=== PATIENT | female | born 1975 | race Caucasian/White ===

== ENCOUNTER 2020-03-26 12:56 | Emergency (ER) | payer OTHER, SELFPAY ==
--- NOTE | 2020-03-26 12:58 | XR_ITS ---
EXAMINATION: PORTABLE CHEST 1 VIEW CLINICAL INFORMATION: possible COVID . COMPARISON: 04/01/2019. TECHNIQUE: Portable frontal view of the chest was obtained. FINDINGS: The lungs are well expanded. No focal infiltrate, effusion, edema, or pneumothorax. Cardiac and mediastinal silhouettes are within normal limits for technique. No acute bony abnormality seen. XR/XR chest 1V IMPRESSION: No evidence of acute disease compared to 04/01/2019.
[2020-03-26 13:03] VITALS: BP 136/80; BP 141/73; PULSE 76; PULSE 90; RESP 18; TEMP 37.5; O2SAT 100; O2SAT 99; BMI 43.3
--- NOTE | 2020-03-26 13:15 | ED.GENADULT ---
HPI - General Adult General Chief complaint: General Medical Stated complaint: N/V/D, -TASTE/SMELL, +EXP, ? COVID Time Seen by Provider: 03/26/20 12:58 Source: patient and EMS Mode of arrival: EMS Limitations: no limitations History of Present Illness HPI narrative: 44 y/o female with history of asthma presents via EMS with 1 week of vomiting, diarrhea, loss of sense of taste and smell as well as dry cough for 1 week. She lives with 3 family members who are COVID positive. She denies shortness of breath, wheezing or chest pain. She has been eating and drinking much less due to loss of appetite. Abdominal pain is when she vomits she feels a soreness throughout her entire abdomen. MD complaint: COVID symptoms Onset (ago): week(s) (1) Location: back and abdomen Radiation: non-radiation Severity: severe Severity scale (1-10): 8 Quality: aching Pain Consistency: constant Relieving factors: none Exacerbating factors: movement Associated symptoms: cough, headaches, loss of appetite, malaise and nausea/vomiting Treatments prior to arrival: none Related Data Previous Rx's Medication Instructions Recorded albuterol sulfate 1 inh INHALATION QID PRN #6.7 g 03/26/20 ondansetron HCl [Zofran] 4 mg PO Q8H PRN #15 tab 03/26/20 Allergies Allergy/AdvReac Type Severity Reaction Status Date / Time guaifenesin [From MUCINEX] Allergy Mild HIVES Unverified 12/23/19 17:48 aspirin [Aspirin] Allergy Unknown UNKNOWN Unverified 12/23/19 17:48 penicillin V Allergy Unknown Unverified 06/16/18 00:00 Penicillins Allergy Unknown UNKNOWN Unverified 12/23/19 17:48 poly-ureaurethane [Nuvail] Allergy Unknown Verified 07/19/16 00:00 From Nubain Allergy Unknown UNKNOWN Uncoded 12/23/19 17:48 Nubain Allergy Unknown Uncoded 06/16/18 00:00 Patient states she has no Allergy Unknown Uncoded 06/16/18 00:00 know Review of Systems Review of Systems: Constitutional: No Fever, + Chills ENT/Mouth: No sore throat, No Rhinorrhea, No Swallowing Difficulty Eyes: No Eye Pain, No Swelling, No Redness Cardiovascular: No Chest Pain, No SOB, No Orthopnea, No Edema Respiratory: + Cough, No Sputum, No Wheezing, No dyspnea Gastrointestinal: + Nausea, + Vomiting, + Diarrhea, + abdominal Pain Genitourinary: No Dysuria, No Urinary Frequency, No Hematuria Musculoskeletal: + joint pain, + Myalgias Skin: No Skin Lesions, No rash Neuro: No Weakness, No Numbness, No Dizziness, + Headache Psych: + Anxiety/Panic, No Depression Heme/Lymph: No Bruising, No Lymphadenopathy Endocrine: No Polyuria, No Polydipsia [facility] Past Medical History Attestation statement: The following information was validated with the patient. Medical History (Updated 03/26/20 @ 14:44 by HANK Mak) Asthma Social History Social History Alcohol intake: never Smoked in Last 30 Days: No Use of substances other than those prescribed or required for medical reasons: No Advance Directives: No Advance Directives Information Provided: No Physical Exam Vital Signs: Vital Signs: Last Vital Signs Temp 99.5 F 03/26/20 13:03 Pulse 76 03/26/20 13:03 Resp 18 03/26/20 13:03 BP 141/73 H 03/26/20 13:03 Pulse Ox 99 03/26/20 13:03 Body Mass Index 43.3 Appearance: Alert. Oriented X3. Appears anxious, tearful Eyes: Pupils equal, round and reactive to light. ENT: Pharynx normal. Neck: Normal inspection. Neck supple. CVS: Normal heart rate and rhythm. Pulses normal. Respiratory: No respiratory distress. Breath sounds normal. Abdomen: Soft with mild tenderness throughout to deep palpation, no rebound or guarding. +BS x4 Skin: Skin warm and dry. Normal skin color. Normal skin turgor. No rashes. Extremities: No lower extremity edema. Negative Sandi's sign. Neuro: Oriented X 3. No motor deficit. No sensory deficit. Course Course Course Narrative: 44 y/o female presenting with COVID symptoms after known exposure to family members who she lives with. Vitals are stable on arrival, SpO2 99% on room air. Will get basic lab workup, give gentle IVF and zofran. Anticipate d/c home pending results. Reevaluation(s) Reevaluation #1: Lab workup unremarkable. SpO2 remains 100% on room air, hemodynamically stable. Found to be COVID positive. Patient counseled on diagnosis, illness course and management. Stable for d/c. Medical Decision Making Lab Data Result diagrams: 03/26/20 13:32 03/26/20 13:32 Labs: Lab Results 03/26/20 03/26/20 03/26/20 Range/Units 13:32 13:32 13:32 WBC 7.1 (4.8-10.8) X10*3/uL RBC 3.90 L (4.20-5.50) X10*6/uL Hgb 11.8 L (12.0-16.0) g/dl Hct 35.9 L (37-47) % MCV 92.1 (80-98) fL MCH 30.3 (27.0-33.0) pg MCHC 32.9 (31.0-35.0) g/dl RDW 13.3 (11.0-16.0) % Plt Count 287 (160-400) X10*3/uL MPV 9.8 (9.4-12.3) fL Immature Gran % (Auto) 0.6 H (0.0-0.4) % Neut % (Auto) 53.3 (45-73) % Lymph % (Auto) 40.5 H (20-40) % [place] % (Auto) 3.9 (2-11) % Eos % (Auto) 1.3 (0-4) % Baso % (Auto) 0.4 (0-2) % Lymph # (Auto) 2.9 (1.2-4.9) X10*3/uL [place] # (Auto) 0.3 (0.1-1.2) X10*3/uL Eos # (Auto) 0.1 (0.0-0.4) X10*3/uL Baso # (Auto) 0.0 (0.0-0.2) X10*3/uL Abs Immat Gran (auto) 0.04 H (0.00-0.03) X10*3/uL Absolute Neuts (auto) 3.8 (2.0-8.3) X10*3/uL Absolute Nucleated RBC 0.000 (0.0-0.012) X10*3/uL Nucleated RBC % (auto) 0.0 (0.0-0.2) /100WBC Hold Blue Top Sodium 140 (135-145) mmol/L Potassium 4.0 (3.3-5.1) mmol/l Chloride 106 (96-108) mmol/L Carbon Dioxide 24 (22-29) mmol/L Anion Gap 14 (12-20) BUN 8 L (9-16) mg/dL Creatinine 0.67 (0.5-1.4) mg/dL Estim Creat Clear Calc 130.2 Estimated GFR > 60 Random Glucose 84 (60-115) mg/dL Lactic Acid (0.5-2.0) mmol/L Calcium 8.8 (8.4-10.2) mg/dL Magnesium (1.6-2.6) mg/dL Ferritin 11 (10-250) ng/mL Total Bilirubin 0.4 (0.0-1.0) mg/dL Direct Bilirubin < 0.2 (0.0-0.5) mg/dL AST 17 (5-31) U/L ALT 16 (0-31) U/L Alkaline Phosphatase 97 (39-117) U/L C-Reactive Protein 0.52 H (< or = 0.50) mg/dL Total Protein 6.7 (6.5-8.0) g/dL Albumin 3.8 (3.5-5.0) g/dL Procalcitonin < 0.02 ng/mL Coronavirus (PCR) (Negative) Influenza Type A (PCR) (Negative) Influenza Type B (PCR) (Negative) RSV RNA Qual (PCR) (Negative) 03/26/20 03/26/20 03/26/20 Range/Units 13:32 13:32 13:32 WBC (4.8-10.8) X10*3/uL RBC (4.20-5.50) X10*6/uL Hgb (12.0-16.0) g/dl Hct (37-47) % MCV (80-98) fL MCH (27.0-33.0) pg MCHC (31.0-35.0) g/dl RDW (11.0-16.0) % Plt Count (160-400) X10*3/uL MPV (9.4-12.3) fL Immature Gran % (Auto) (0.0-0.4) % Neut % (Auto) (45-73) % Lymph % (Auto) (20-40) % [place] % (Auto) (2-11) % Eos % (Auto) (0-4) % Baso % (Auto) (0-2) % Lymph # (Auto) (1.2-4.9) X10*3/uL [place] # (Auto) (0.1-1.2) X10*3/uL Eos # (Auto) (0.0-0.4) X10*3/uL Baso # (Auto) (0.0-0.2) X10*3/uL Abs Immat Gran (auto) (0.00-0.03) X10*3/uL Absolute Neuts (auto) (2.0-8.3) X10*3/uL Absolute Nucleated RBC (0.0-0.012) X10*3/uL Nucleated RBC % (auto) (0.0-0.2) /100WBC Hold Blue Top SEE NOTE Sodium (135-145) mmol/L Potassium (3.3-5.1) mmol/l Chloride (96-108) mmol/L Carbon Dioxide (22-29) mmol/L Anion Gap (12-20) BUN (9-16) mg/dL Creatinine (0.5-1.4) mg/dL Estim Creat Clear Calc Estimated GFR Random Glucose (60-115) mg/dL Lactic Acid 1.1 (0.5-2.0) mmol/L Calcium (8.4-10.2) mg/dL Magnesium 1.9 (1.6-2.6) mg/dL Ferritin (10-250) ng/mL Total Bilirubin (0.0-1.0) mg/dL Direct Bilirubin (0.0-0.5) mg/dL AST (5-31) U/L ALT (0-31) U/L Alkaline Phosphatase (39-117) U/L C-Reactive Protein (< or = 0.50) mg/dL Total Protein (6.5-8.0) g/dL Albumin (3.5-5.0) g/dL Procalcitonin ng/mL Coronavirus (PCR) (Negative) Influenza Type A (PCR) (Negative) Influenza Type B (PCR) (Negative) RSV RNA Qual (PCR) (Negative) 12/20/20 Range/Units 13:33 WBC (4.8-10.8) X10*3/uL RBC (4.20-5.50) X10*6/uL Hgb (12.0-16.0) g/dl Hct (37-47) % MCV (80-98) fL MCH (27.0-33.0) pg MCHC (31.0-35.0) g/dl RDW (11.0-16.0) % Plt Count (160-400) X10*3/uL MPV (9.4-12.3) fL Immature Gran % (Auto) (0.0-0.4) % Neut % (Auto) (45-73) % Lymph % (Auto) (20-40) % [place] % (Auto) (2-11) % Eos % (Auto) (0-4) % Baso % (Auto) (0-2) % Lymph # (Auto) (1.2-4.9) X10*3/uL [place] # (Auto) (0.1-1.2) X10*3/uL Eos # (Auto) (0.0-0.4) X10*3/uL Baso # (Auto) (0.0-0.2) X10*3/uL Abs Immat Gran (auto) (0.00-0.03) X10*3/uL Absolute Neuts (auto) (2.0-8.3) X10*3/uL Absolute Nucleated RBC (0.0-0.012) X10*3/uL Nucleated RBC % (auto) (0.0-0.2) /100WBC Hold Blue Top Sodium (135-145) mmol/L Potassium (3.3-5.1) mmol/l Chloride (96-108) mmol/L Carbon Dioxide (22-29) mmol/L Anion Gap (12-20) BUN (9-16) mg/dL Creatinine (0.5-1.4) mg/dL Estim Creat Clear Calc Estimated GFR Random Glucose (60-115) mg/dL Lactic Acid (0.5-2.0) mmol/L Calcium (8.4-10.2) mg/dL Magnesium (1.6-2.6) mg/dL Ferritin (10-250) ng/mL Total Bilirubin (0.0-1.0) mg/dL Direct Bilirubin (0.0-0.5) mg/dL AST (5-31) U/L ALT (0-31) U/L Alkaline Phosphatase (39-117) U/L C-Reactive Protein (< or = 0.50) mg/dL Total Protein (6.5-8.0) g/dL Albumin (3.5-5.0) g/dL Procalcitonin ng/mL Coronavirus (PCR) POSITIVE A (Negative) Influenza Type A (PCR) NEGATIVE (Negative) Influenza Type B (PCR) NEGATIVE (Negative) RSV RNA Qual (PCR) NEGATIVE (Negative) Critical Care Time Critical Care Time Critical Care Time: No Discharge Plan Discharge Clinical Impression: COVID-19 Patient Disposition: Home, Self-Care Instructions: COVID-19 (Coronavirus Disease 2019) (ED) Additional Instructions: You were found to be COVID-19 POSITIVE. Your chest x-ray was normal. Your lab workup today was unremarkable. Your vital signs are normal. Rest. Stay hydrated. Do not go out in public for the next 10-14 days. Take over the counter cold/flu medications as needed for your symptoms. If you develop shortness of breath, difficulty breathing, chest pain or any other concerning symptom come back to the ER for further evaluation. Follow up with your doctor this week. Prescriptions: New ondansetron HCl [Zofran] 4 mg tablet 4 mg PO Q8H PRN (Reason: nausea and vomiting) Qty: 15 RF: 0 albuterol sulfate 90 mcg/actuation HFA aerosol inhaler 1 inh inhalation QID PRN (Reason: shortness of breath or wheezing) Qty: 6.7 RF: 0 Stand Alone Forms: Work/School Release Print Language: Micronesian
[2020-03-26] MEDS: 0.9 % Sodium Chloride 1,000 ML 999 ML IVCONT (13:38)
[2020-03-26] MEDS: ondansetron HCL 4 MG/2 ML VIAL IVPUSH (13:39)
--- NOTE | 2020-03-26 13:41 | PC.NURSE ---
iv inserted, labs drawn, bc drawn, department mgr applied nsr 70s, vss, pt medicated per order, cxr performed, will continue to monitor.
[2020-03-26 13:46] LABS: Basophils Percent Auto 0.4 % (0-2); Eosinophils Absolute Auto 0.1 X10*3/uL (0.0-0.4); Eosinophils Percent Auto 1.3 % (0-4); Hematocrit 35.9 % (37-47); Hemoglobin 11.8 g/dl (12.0-16.0); Imm Gran Abs Auto 0.04 X10*3/uL (0.00-0.03); Imm Gran Pct Auto 0.6 % (0.0-0.4); Lymphocytes Absolute Auto 2.9 X10*3/uL (1.2-4.9); Lymphocytes Percent Auto 40.5 % (20-40); Mean Corpuscular HGB Conc 32.9 g/dl (31.0-35.0); Mean Corpuscular Hemoglobin 30.3 pg (27.0-33.0); Mean Corpuscular Volume 92.1 fL (80-98); Mean Platelet Volume 9.8 fL (9.4-12.3); Monocytes Absolute Auto 0.3 X10*3/uL (0.1-1.2); Monocytes Percent Auto 3.9 % (2-11); Neutrophils Absolute Auto 3.8 X10*3/uL (2.0-8.3); Neutrophils Percent Auto 53.3 % (45-73); Platelet Count 287 X10*3/uL (160-400); Red Cell Distribution Width 13.3 % (11.0-16.0); White Blood Count 7.1 X10*3/uL (4.8-10.8)
[2020-03-26 13:49] LABS: MANUAL DIFF FLAG NO
[2020-03-26 14:06] LABS: Lactic Acid 1.1 mmol/L (0.5-2.0)
[2020-03-26 14:12] LABS: Alanine Aminotransferase 16 U/L (0-31); Albumin Level 3.8 g/dL (3.5-5.0); Alkaline Phosphatase 97 U/L (39-117); Anion Gap 14 (12-20); Aspartate Amino Transferase 17 U/L (5-31); Bilirubin Direct < 0.2 mg/dL (0.0-0.5); Bilirubin Total 0.4 mg/dL (0.0-1.0); Blood Urea Nitrogen 8 mg/dL (9-16); C Reactive Protein 0.52 mg/dL (< or = 0.50); Calcium 8.8 mg/dL (8.4-10.2); Carbon Dioxide 24 mmol/L (22-29); Chloride 106 mmol/L (96-108); Creatinine Clr Calc Pharmacy 130.2; Estimated Glomerular Filt Rate > 60; Glucose Random 84 mg/dL (60-115); Sodium 140 mmol/L (135-145); Total Protein 6.7 g/dL (6.5-8.0)
[2020-03-26 14:15] LABS: Magnesium 1.9 mg/dL (1.6-2.6)
[2020-03-26 14:32] LABS: Ferritin 11 ng/mL (10-250); Procalcitonin < 0.02 ng/mL
[2020-03-26 14:39] LABS: Influenza A PCR NEGATIVE (Negative); Influenza B PCR NEGATIVE (Negative); Resp Syncy Virus RNA Qual PCR NEGATIVE (Negative)
[2020-03-26 14:40] LABS: SARS COV2 PCR INHOUSE POSITIVE (Negative)
[2020-03-26 15:33] VITALS: BP 103/47; PULSE 68; RESP 19; TEMP 36.8; O2SAT 100
== END 2020-03-26 15:48 | disposition home or self-care (01) ==
PROVIDERS: Physician Assistant; Emergency Provider Emergency Medicine; PCP Family Medicine
DX: U07.1 COVID-19 (principal); J45.909 Unspecified asthma, uncomplicated; Z79.899 Other long term (current) drug therapy
CPT/HCPCS: 0241U; 36415; 71045; 80048; 80076; 82728; 83605; 83735; 84145; 85025; 86140; 87040; 99284; J2405

== ENCOUNTER 2020-05-25 11:28 | Outpatient (REF) | payer OTHER, SELFPAY ==
--- NOTE | ~2020-05-25 | US_ITS ---
EXAMINATION: US THYROID CLINICAL INFORMATION: Nodule, pain in throat. COMPARISON: None TECHNIQUE: Linear transducer grayscale and color Doppler examination with attention to the region of the thyroid. FINDINGS: SIZE: Measurements of the thyroid lobes and nodules are given in sagittal, anteroposterior and transverse dimensions respectively. Right Thyroid Lobe: 3.9 x 1.2 x 1.3 cm, volume 3.0 mL. Parenchyma: The gland echotexture is homogeneous. Thyroid vascularity is normal. No nodules. Left Thyroid Lobe: 3.5 x 1.3 x 1.2 cm, volume 2.8 mL. Parenchyma: The gland echotexture is homogeneous. Thyroid vascularity is normal. No nodules. Isthmus: 0.2 cm in maximum AP dimension. No nodules. No focal thyroid nodule is seen. NODES: No lymphadenopathy is seen in the tissue surrounding the thyroid gland. US/US thyroid IMPRESSION: Symmetric homogeneous thyroid. No nodules. No adenopathy.
== END 2020-05-25 11:29 | disposition home or self-care (01) ==
LOC: HO.HMGCX 11:28
PROVIDERS: PCP Family Medicine; Visit Provider Registered Nurse
DX: R07.0 Pain in throat (principal); R13.19 Other dysphagia; R22.1 Localized swelling, mass and lump, neck
CPT/HCPCS: 76536

== ENCOUNTER 2021-07-16 07:59 | Outpatient (REF) | payer MEDICAID, SELFPAY ==
--- NOTE | ~2021-07-16 | XR_ITS ---
EXAMINATION: XR KNEE, BILATERAL XR KNEE, RIGHT XR KNEE, LEFT CLINICAL INFORMATION: Bilateral knee pain. COMPARISON: None TECHNIQUE: Standing AP view of both knees and lateral and sunrise views of the right and left knee. FINDINGS: RIGHT KNEE: Mild medial compartment joint space narrowing. Tiny marginal osteophytes. No osseous erosion. No fracture or dislocation. No significant joint effusion. No abnormal soft tissue calcification. LEFT KNEE: Mild medial compartment joint space narrowing. Tiny medial and patellofemoral compartment marginal osteophytes. No osseous erosion. No fracture or dislocation. No significant joint effusion. No abnormal soft tissue calcification. XR/XR knee LT 2V IMPRESSION: Right knee: Mild medial compartment osteoarthritis. Left knee: Mild medial and patellofemoral compartment osteoarthritis.
--- NOTE | ~2021-07-16 | XR_ITS ---
EXAMINATION: XR KNEE, BILATERAL XR KNEE, RIGHT XR KNEE, LEFT CLINICAL INFORMATION: Bilateral knee pain. COMPARISON: None TECHNIQUE: Standing AP view of both knees and lateral and sunrise views of the right and left knee. FINDINGS: RIGHT KNEE: Mild medial compartment joint space narrowing. Tiny marginal osteophytes. No osseous erosion. No fracture or dislocation. No significant joint effusion. No abnormal soft tissue calcification. LEFT KNEE: Mild medial compartment joint space narrowing. Tiny medial and patellofemoral compartment marginal osteophytes. No osseous erosion. No fracture or dislocation. No significant joint effusion. No abnormal soft tissue calcification. XR/XR knee standing BI IMPRESSION: Right knee: Mild medial compartment osteoarthritis. Left knee: Mild medial and patellofemoral compartment osteoarthritis.
--- NOTE | ~2021-07-16 | XR_ITS ---
EXAMINATION: XR KNEE, BILATERAL XR KNEE, RIGHT XR KNEE, LEFT CLINICAL INFORMATION: Bilateral knee pain. COMPARISON: None TECHNIQUE: Standing AP view of both knees and lateral and sunrise views of the right and left knee. FINDINGS: RIGHT KNEE: Mild medial compartment joint space narrowing. Tiny marginal osteophytes. No osseous erosion. No fracture or dislocation. No significant joint effusion. No abnormal soft tissue calcification. LEFT KNEE: Mild medial compartment joint space narrowing. Tiny medial and patellofemoral compartment marginal osteophytes. No osseous erosion. No fracture or dislocation. No significant joint effusion. No abnormal soft tissue calcification. XR/XR knee RT 2V IMPRESSION: Right knee: Mild medial compartment osteoarthritis. Left knee: Mild medial and patellofemoral compartment osteoarthritis.
== END 2021-07-16 08:00 | disposition home or self-care (01) ==
LOC: HO.HOSX 07:59
PROVIDERS: Visit Provider Physician Assistant
DX: M25.561 Pain in right knee (principal); M25.562 Pain in left knee
CPT/HCPCS: 73560; 73565; 99202

== ENCOUNTER → 2021-08-08 09:06 | Outpatient (BNVA) | payer MEDICAID, SELFPAY | PROVIDERS: PCP Family Medicine; Referring Provider Family Medicine; Visit Provider Physician Assistant Surgical | DX: Z13.89 Encounter for screening for other disorder (principal) ==

== ENCOUNTER → 2021-08-20 08:03 | Outpatient (BNVA) | payer MEDICAID, SELFPAY | PROVIDERS: PCP Family Medicine; Visit Provider Physician Assistant Surgical | DX: Z13.89 Encounter for screening for other disorder (principal) ==

== ENCOUNTER → 2021-09-26 11:28 | Outpatient (BNVA) | payer MEDICAID, SELFPAY | PROVIDERS: PCP Family Medicine; Visit Provider Dietitian, Registered | DX: E66.01 Morbid (severe) obesity due to excess calories (principal) | CPT/HCPCS: 97802 ==

== ENCOUNTER 2021-11-29 11:24 | Outpatient (REF) | payer MEDICAID, SELFPAY ==
[2021-12-06 20:32] LABS: HPV mRNA E6/E7 rflx Not Detected (Not Detected)
== END 2021-11-29 11:25 | disposition home or self-care (01) ==
LOC: HO.LAB 11:24
PROVIDERS: Visit Provider Obstetrics & Gynecology
DX: Z01.419 Encounter for gynecological examination (general) (routine) without abnormal findings (principal); Z11.51 Encounter for screening for human papillomavirus (HPV)
CPT/HCPCS: 87624; 88142

== ENCOUNTER 2021-12-24 11:53 | Outpatient (REF) | payer MEDICAID, SELFPAY ==
--- NOTE | ~2021-12-24 | MM_ITS ---
EXAMINATION: MM SCREENING DIGITAL BREAST TOMOSYNTHESIS, BILATERAL CLINICAL INFORMATION: Screening. Asymptomatic. The lifetime risk of breast cancer based on the Tyrer-Cuzick Model is 9%. COMPARISON: Mammography: 05/08/2015 (baseline) TECHNIQUE: Digital breast tomosynthesis is performed in both the craniocaudal and mediolateral oblique views along with computer-aided detection (CAD). Synthesized 2D images are generated from the tomosynthesis. Additional right MLO view is provided. FINDINGS: There are scattered areas of fibroglandular density (ACR BI-RADS breast composition Category b). There are no significant masses, abnormal calcifications, or other abnormalities. Parenchymal pattern is similar to prior baseline exam. The axilla and skin contours are unremarkable. There are no significant changes. MM/MM tomosynthesis screening BI IMPRESSION: No mammographic evidence of malignancy. ASSESSMENT: BI-RADS 1: Negative RECOMMENDATION: Routine annual mammography screening. This patient's information was entered into a reminder system with a target due date for their next mammogram.
== END 2021-12-24 11:54 | disposition home or self-care (01) ==
LOC: HO.MAMMO 11:53
PROVIDERS: Visit Provider Obstetrics & Gynecology
DX: Z12.31 Encounter for screening mammogram for malignant neoplasm of breast (principal)
CPT/HCPCS: 77063; 77067

== ENCOUNTER 2022-03-06 11:22 | Outpatient (REF) | payer MEDICAID, SELFPAY ==
--- NOTE | ~2022-03-06 | XR_ITS ---
EXAMINATION: XR CHEST CLINICAL INFORMATION: Obesity. COMPARISON: March 26, 2020. TECHNIQUE: 2 views of the chest were obtained. FINDINGS: No significant abnormality is noted involving the heart, lungs, mediastinum, bony thorax or soft tissues. XR/XR chest 2V IMPRESSION: Unremarkable examination.
== END 2022-03-06 11:23 | disposition home or self-care (01) ==
LOC: HO.XRAY 11:22
PROVIDERS: Absent Provider Family Medicine; PCP Family Medicine; Visit Provider Emergency Medicine
DX: M54.2 Cervicalgia (principal); E66.01 Morbid (severe) obesity due to excess calories
CPT/HCPCS: 71046

== ENCOUNTER → 2022-10-02 10:47 | Outpatient (BNVA) | payer MEDICAID, SELFPAY | PROVIDERS: PCP Family Medicine; Referring Provider Family Medicine; Visit Provider Internal Medicine | DX: R07.2 Precordial pain (principal); R06.02 Shortness of breath; R00.2 Palpitations | CPT/HCPCS: 93005; 99202 ==

== ENCOUNTER → 2022-10-22 13:09 | Outpatient (REF) | payer MEDICAID, SELFPAY ==
--- NOTE | 2022-10-22 13:12 | HM_ITS ---
* Total monitoring time about 3 days. * Underlying rhythm is sinus. Average ventricular rate 70/Min. Range 53 to 117/Min. * Extremely rare supraventricular and ventricular ectopy with minimal burden. * No significant pauses or AV blocks. * Various symptoms noted in diary including shortness of breath, chest pain, palpitations, skipping correlate with sinus rhythm. MTDD
== END ==
LOC: HO.CARD 13:09
PROVIDERS: PCP Family Medicine; Visit Provider Internal Medicine
DX: R00.2 Palpitations (principal)
CPT/HCPCS: 93242

== ENCOUNTER → 2022-10-22 13:12 | Outpatient (BNV) | payer MEDICAID, SELFPAY | PROVIDERS: PCP Family Medicine; Visit Provider Internal Medicine | DX: I47.1 Supraventricular tachycardia (principal) | CPT/HCPCS: 93244 ==

== ENCOUNTER 2022-12-13 13:33 | Outpatient (AMB) | payer MEDICAID, SELFPAY ==
--- NOTE | 2022-12-13 13:40 | A.OFFVIS_ITS ---
Intake Vital Signs 12/13/22 13:41 Height 5 ft 3 in Weight 229 lb 11.547 oz BMI 40.7 BP 129/68 Blood Pressure Location Lt brachial Position Sitting Pulse 69 Intake Visit Reasons: pre colonoscopy screening Intake Note: Anahi presents in office as a new.patient for a colonoscopy screening. PT CC: pt reports having constipation, abdominal pain , bloated ,nausea , vomiting , GERD pt denies any other GI Issues Leadership Development Instructor Required: Yes Leadership Development Instructor Language: Yoruba Accompanied by: Self / Same As Patient Allergies guaifenesin [From MUCINEX] Allergy (Mild, Verified 12/13/22 13:43) HIVES aspirin [Aspirin] Allergy (Unknown, Verified 12/13/22 13:43) UNKNOWN penicillin V Allergy (Unknown, Verified 12/13/22 13:43) Hives Penicillins Allergy (Unknown, Verified 12/13/22 13:43) UNKNOWN poly-ureaurethane [Nuvail] Allergy (Unknown, Verified 12/13/22 13:43) Hives From Nubain Allergy (Unknown, Uncoded 12/13/22 13:43) UNKNOWN Nubain Allergy (Unknown, Uncoded 12/13/22 13:43) Hives Patient states she has no know Allergy (Unknown, Uncoded 12/13/22 13:43) Hives HPI pre colonoscopy screening HPI Details 47 year old? female with past medical hi story of morbid obesity, chronic abdominal pain, nephrolithiasis, high cholesterol, asthma is here today for pre colonoscopy screening.? Patient was sent to us by her PCP.? This is her first colonoscopy screening.? ? Denies any personal or family history of gastrointestinal disease, colon polyps, or cancer.? Denies history of difficulty with sedation or anesthesia in the past.? Negative for history of sleep apnea.? Denies any history of cardiac, renal, pulmonary, or hepatic disease.?? No history of infectious? diseases like hepatitis A, B, C, HIV or tuberculosis.? Patient is not on any anticoagulation therapy. Patient reports severe epigastric discomfort postprandially. Patient states that she was diagnosed with gastritis when she was younger. Currently patient is using famotidine not on any PPI. Patient reports postprandial acid reflux and occasional nausea with vomiting. Patient reports postprandial abdominal bloating. Reports that she is constipated. No bowel movement sometimes her 3-4 days. Patient denies melena, hematochezia, unintentional weight loss or ribbon like stools. Patient reports dyspepsia without dysphagia or odynophagia. PFS Medical History COVID-19 Asthma Surgical History Hx of tubal ligation Hx of oral surgery Family History Mother No problems noted. Father Heart attack Stroke Diabetes Heart problem Sister Hypertension Pre-diabetes Circulation problem Son No problems noted. Son No problems noted. Daughter No problems noted. 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 Reproductive History Menstrual Age of Menarche: 10 Review of Systems Const Denies weight gain and Denies weight loss ENT Reports no additional complaints, Denies dysphagia and Denies odynophagia Card Reports no additional complaints Resp Reports no additional complaints GI Reports abdominal pain (Epigastric), Denies belching, Denies melena, Reports bloating, Reports constipation, Denies dysphagia, Denies excessive flatus, Repo rts dyspepsia, Reports heartburn, Denies diarrhea, Denies loose stools, Reports nausea, Denies odynophagia and Reports vomiting (Occasional) Reports no additional complaints Musc Reports no additional complaints Neuro Reports no additional complaints Psych Reports no additional complaints Endo Reports no additional complaints Physical Exam Vital Signs: Last Vital Signs Pulse 69 12/13/22 13:41 BP 129/68 12/13/22 13:41 BMI result Body Mass Index 40.7 Const General: healthy appearing, no acute distress and well developed Nutritional Appearance: obese Orientation/consciousness: patient oriented x3 HEENT Head: Yes normal to inspection, Yes normocephalic and Yes atraumatic Face and sinus: Yes normal facial exam Mouth: Normal oral and palatal mucosa present Throat: Yes posterior oropharynx normal, Yes tonsils normal and Yes uvula midline Eyes General: appearance normal, both eyes and all related structures Neck Neck: Yes normal visual inspection, Yes full ROM and Yes trachea midline Thyroid: Thyroid normal Resp Effort & Inspection: normal respiratory effort, able to speak in complete sentences, no tracheal deviation and symmetric chest movement Auscultation: clear to auscultation bilaterally Cardio Rate: regular rate Heart sounds: S1 normal heart sound present and S2 normal heart sound present GI Inspection: Yes normal to inspection, No distended and Yes obesity Palpation (GI): Soft to palpation, not firm, nontender and No hepatosplenomegaly present Auscultation: normal bowel sounds General: Yes no CVA tenderness Back/Spine/Pelvis Back: no CVA tenderness Skin General skin exam: elasticity normal, turgor normal and dry skin Neuro General: patient oriented x3 Psych Appearance: grossly normal Mental Status: mental status grossly normal Speech and movement: Normal speech and movement present Assessment & Plan Assessment & Plan (1) Screen for colon cancer: Code(s): Z12.11 - Encounter for screening for malignant neoplasm of colon Plan: Denies any issues with anesthesia in the past.? Denies any history of sleep apnea.? No history infectious diseases in the past or present.? Not on any anticoagulation therapy.? No family or personal history of colon cancer or polyps.? Patient denies melena, hematochezia, unintentional weight loss or ribbon like stools.? Patient has severe abdominal discomfort postprandially, epigastric discomfort, severe constipation. Reports nausea and occasional vomiting. Patient will have more testing before going for colonoscopy. (2) Chronic abdominal pain: Code(s): R10.9 - Unspecified abdominal pain; G89.29 - Other chronic pain Plan: Epigastric abdominal discomfort with dyspepsia, without dysphagia or odynophagi a. Will check lipase, liver profile, transglutaminase. (3) GERD (gastroesophageal reflux disease): Code(s): K21.9 - Gastro-esophageal reflux disease without esophagitis Qualifiers: Esophagitis presence: esophagitis presence not specified Qualified Code(s): K21.9 - Gastro-esophageal reflux disease without esophagitis Plan: Patient will return on Friday for H pylori breath test. She will hold famotidine on Friday. Patient can take Tums on as needed basis. We will treat her empirically if positive. I will start her on PPI on Friday after that test. Patient will be sent for upper endoscopy when she goes for colonoscopy. (4) Chronic idiopathic constipation: Code(s): K59.04 - Chronic idiopathic constipation Plan: Reports severe constipation. Patient states that she has been dealing with this for some time. Will start her on Senokot. Patient was encouraged to increase fluid intake and activity to promote better bowel motility. Patient will let me know if this is not working we will start her on Linzess. I will see her in 3 weeks, sooner on as needed basis. Patient is agreeable to this plan and verbalizes understanding of instructions. She was given the opportunity to ask questions and all questions answered. Thank you for allowing me to participate in her care Orders: Orders H Pylori Breath Test Today Transglutaminase Ab IgG Today R10.9 - Unspecified abdominal pain Transglutaminase IgA Today R10.9 - Unspecified abdominal pain Liver Panel Today R10.9 - Unspecified abdominal pain Lipase Today R10.9 - Unspecified abdominal pain TSH reflex Free T4 Today K59.00 - Constipation, unspecified Medications: New sennosides (Natural Senna Laxative) 17.2 mg (2 x 8.6 mg) PO BEDTIME 180 tabs 3RF constipation K59.00 - Constipation, unspecified ondansetron 4 mg PO Q8H PRN 20 tabs 0RF nausea and vomiting R11.0 - Nausea Coding Level of Care Code New Pt Level 4 (41739) Diagnoses Screen for colon cancer Z12.11 Chronic abdominal pain R10.9; G89.29 Gastroesophageal reflux disease, unspecified whether esophagitis present K21.9 Esophagitis presence: esophagitis presence not specified Chronic idiopathic constipation K59.04 Time Spent (min) 45 Comment {30 minutes spent with patient and additional 15 minutes spent reviewing her records}
[2022-12-13 13:41] VITALS: BP 129/68; PULSE 69; BMI 40.7
== END 2022-12-13 14:18 | disposition home or self-care (01) ==
PROVIDERS: PCP Family Medicine; Visit Provider Nurse Practitioner Family
DX: Z12.11 Encounter for screening for malignant neoplasm of colon (principal); R10.9 Unspecified abdominal pain; G89.29 Other chronic pain; K21.9 Gastro-esophageal reflux disease without esophagitis; K59.04 Chronic idiopathic constipation; Z01.818 Encounter for other preprocedural examination
CPT/HCPCS: 99204

== ENCOUNTER → 2022-12-13 14:28 | Outpatient (REF) | payer MEDICAID, SELFPAY ==
--- NOTE | 2022-12-13 14:30 | CA_ITS ---
Transthoracic Echocardiogram Patient (Last, First, Middle): Anahi Rodriguez, Gender: Female Date of : 1975 Age: 47 Procedure Date: 12/13/2022 Procedure Type: Transthoracic Echocardiogram Location: OP Height: 162.56 cm Weight: 102.51 kg BSA: 2.06 m2 Heart Rate: 57 bpm BP: 115 / 60 mmHg Police Inspector: ROLAND Crawford MD: Jeffrey Monroe MD Freight Hustler: Doni Wharton MD Symptoms: I25.10 - Atherosclerotic heart disease of [place] coronary artery without... Study Quality: Fair ECG Rhythm: Bradycardia Conclusions: - 1. Normal LV ejection fraction 55-60% with regional wall motion abnormality consistent with underlying coronary artery disease 2. Normal cardiac valvular Dopplers 3. Normal RV systolic pressure 4. No gross pericardial effusion Findings Left Ventricle Normal left ventricular size, thickness, and systolic function. The visually estimated ejection fraction is between 55-60%. Spectral Doppler is indicative of a normal filling pattern. Wall Motion Rest Echo Findings The basal inferior and basal inferolateral segments are hypokinetic. All other scored wall segments showed normal motion. Right Ventricle Normal right ventricular cavity size and systolic function. Atria Both atria are normal in size. Aortic Valve Normal aortic valve structure and function. There is no aortic valve stenosis. There is no aortic valve regurgitation. Mitral Valve Normal mitral valve structure and function. There is trace mitral valve regurgitation. There is no mitral valve stenosis. Pulmonic Valve The pulmonic valve is likely normal. Tricuspid Valve Normal tricuspid valve structure. There is trace tricuspid valve regurgitation. The right ventricular systolic pressure is normal. The right ventricular systolic pressure is 15 mmHg. Normal right atrial pressure. There is no evidence of pulmonary hypertension. Great Vessels All visible segments of the aorta are normal in size. The pulmonary artery was not well visualized. Venous The inferior vena cava is normal in size and collapses greater than 50% with inspiration. Pericardium/Pleural There is no evidence of pericardial effusion. Prior Study Comparison Changes noted compared to prior study dated: 10/18/2017. Regional wall motion abnormality noted Measurements 2D Linear Measurements IVSd: 0.80 0.6-0.9/0.6-1.0 cm LVIDd: 4.80 3.9-5.3/4.2-5.9 cm LVIDd Index: 2.33 2.4-3.2/2.2-3.1 cm/m2 LVIDs: 3.10 2.0-3.6 cm LVPWd: 0.70 0.7-1.1 cm LA Diam: 3.80 2.7-3.8/3.0-4.0 cm LAIDs Index: 1.84 1.5-2.3 cm/m2 LV Mass: 145.03 67-162/88-224 g LV Mass Index: 70.40 43-95/49-115 g/m2 LVOT Diam: 1.90 3.0+(-)1.3 cm 2D Systolic Function EF 4C: 57.20 >55% EF 2C: 56.70 >55% EF BiP: 57.40 >55% Mitral Valve MV Pk E: 0.92 MV PK A: 0.62 MV Decel Time: 185.00 E/A: 1.50 E'Lateral: 11.20 E'Medial: 8.05 E/E' Med: 11.40 E/E' Lat: 8.20 PHT: 54.00 MVA PHT: 4.07 Decel Bland: 4.98 Aortic Valve AoV Pk Godfrey: 1.56 AoV Mn Godfrey: 1.12 AoV VTI: 0.38 AoV Pk Grad: 10.00 Aov Mn Grad: 6.00 MOJGAN Cont.VTI: 1.86 LVOT LVOT Pk Godfrey: 1.05 LVOT Mn Godfrey: 0.71 LVOT VTI: 0.25 LVOT Pk Grad: 4.00 LVOT Mn Grad: 2.00 LVOT Diam: 1.90 LVOT Area: 2.84 Diastolic Function MV Pk E: 0.92 MV Pk A: 0.62 E/A: 1.50 E'Medial: 8.05 E/E' Med: 11.40 E' Laterial: 11.20 E/E' Lat: 8.20 Right Ventricle TAPSE (mm): 21.30 TVS' Godfrey: 12.00 Tricuspid Valve TR Pk Godfrey: 1.73 TR Pk Grad: 12.00 RA Press: 3.00 RVSP: 15.00 Great Vessels Aorta Sinus of Valsalva: 3.20 2.0-3.5 cm Ao Asc: 3.00 2.1-3.4 cm Pulmonary Valve PV Pk Godfrey: 1.09 Peak PV Grad: 5.00 Updated in Other Vendor System with Status of Final Doni Wharton MD electronically signed on 12/14/2022 1:15:25 PM with status of Final
== END ==
LOC: HO.CARD 14:28
PROVIDERS: PCP Family Medicine; Visit Provider Internal Medicine
DX: R07.2 Precordial pain (principal); I25.10 Atherosclerotic heart disease of native coronary artery without angina pectoris; R10.9 Unspecified abdominal pain; K21.9 Gastro-esophageal reflux disease without esophagitis; K59.04 Chronic idiopathic constipation
CPT/HCPCS: 93306; 99212

== ENCOUNTER → 2022-12-13 14:30 | Outpatient (BNV) | payer MEDICAID, SELFPAY | PROVIDERS: PCP Family Medicine; Visit Provider Internal Medicine Cardiovascular Disease | DX: I25.10 Atherosclerotic heart disease of native coronary artery without angina pectoris (principal) | CPT/HCPCS: 93306 ==

== ENCOUNTER → 2022-12-16 08:30 | Outpatient (BNVA) | payer MEDICAID, SELFPAY | PROVIDERS: PCP Family Medicine; Visit Provider Nurse Practitioner Family | DX: Z11.0 Encounter for screening for intestinal infectious diseases (principal) | CPT/HCPCS: 99211 ==

== ENCOUNTER 2022-12-17 17:10 | Outpatient (REF) | payer MEDICAID, SELFPAY ==
[2022-12-20 13:47] LABS: H Pylori Breath Test Negative (Negative)
== END 2022-12-17 17:11 | disposition home or self-care (01) ==
LOC: HO.LNP 17:10
PROVIDERS: Visit Provider Nurse Practitioner Family
DX: Z11.2 Encounter for screening for other bacterial diseases (principal)
CPT/HCPCS: 83013

== ENCOUNTER 2022-12-25 15:56 | Outpatient (REF) | payer MEDICAID, SELFPAY ==
--- NOTE | ~2022-12-25 | MM_ITS ---
EXAMINATION: MM SCREENING DIGITAL BREAST TOMOSYNTHESIS, BILATERAL CLINICAL INFORMATION: Screening. Asymptomatic. COMPARISON: Mammography: This study is compared with prior exams dating back to 2016. TECHNIQUE: Digital breast tomosynthesis is performed in both the craniocaudal and mediolateral oblique views along with computer-aided detection (CAD). Synthesized 2D images are generated from the tomosynthesis. FINDINGS: There are scattered areas of fibroglandular density (ACR BI-RADS breast composition Category b). There are no significant masses, abnormal calcifications, or other abnormalities. MM/MM tomosynthesis screening BI IMPRESSION: No mammographic evidence of malignancy. ASSESSMENT: BI-RADS BI-RADS 1 - Negative RECOMMENDATION: Routine annual mammography screening. 1 year F/U This examination should not preclude the clinical evaluation of a suspicious palpable abnormality. This patient's information was entered into a reminder system with a target due date for their next mammogram.
== END 2022-12-25 15:57 | disposition home or self-care (01) ==
LOC: HO.MAMMO 15:56
PROVIDERS: PCP Family Medicine; Visit Provider Family Medicine
DX: Z12.31 Encounter for screening mammogram for malignant neoplasm of breast (principal)
CPT/HCPCS: 77063; 77067

== ENCOUNTER → 2022-12-25 16:00 | Outpatient (BNV) | payer MEDICAID, SELFPAY | PROVIDERS: PCP Family Medicine; Visit Provider Radiology Diagnostic Radiology | DX: Z12.31 Encounter for screening mammogram for malignant neoplasm of breast (principal) | CPT/HCPCS: 77063; 77067 ==

== ENCOUNTER → 2023-01-07 11:00 | Outpatient (REF) | payer MEDICAID, SELFPAY ==
--- NOTE | 2023-01-07 11:02 | CA_ITS ---
Acquisition Time: 2023-01-07 11:07:03 Total Exercise Time: 00:07:11 Test Indications: CP, SOB Medications: SEE H Protocol: JESSICA Max HR: 148 BPM 86% of Pred: 171 BPM Max BP: 140/082 mmHG Max Work Load: 8.8 METS Exercise stress test with exercise 7 min 11 sec of Jessica protocol, achieving 88% MPHR, with moderate sob/ fatigue and need to stop, no chest discomfort, without arrythmia, with normotensive response to exercise, with borderline EKG changes noted on some EKGs, artifact present, cant exclude ischemia. Echo images obtained by tech at rest and immediately post peak exercise. Definity contrast used.Test reviewed with Dr Monroe. Referred By: Jeffrey Monroe Overread By: JOHN QUEZADA
== END ==
LOC: HO.CARD 11:00
PROVIDERS: Visit Provider Internal Medicine
DX: R07.2 Precordial pain (principal)
CPT/HCPCS: 93350; Q9957

== ENCOUNTER → 2023-01-07 11:02 | Outpatient (BNV) | payer MEDICAID, SELFPAY | PROVIDERS: Visit Provider Nurse Practitioner Family | DX: R06.02 Shortness of breath (principal); R07.2 Precordial pain | CPT/HCPCS: 93016; 93018; 93350; 93352 ==

== ENCOUNTER 2023-01-09 10:31 | Outpatient (AMB) | payer MEDICAID, SELFPAY ==
--- NOTE | 2023-01-09 10:35 | MHC.OFFVIS ---
Intake Vital Signs 01/09/23 10:36 Height 5 ft 3 in Weight 228 lb BMI 40.4 BP 112/66 Intake Visit Reasons: Annual Aboriginal Community Council Member Required: Yes Aboriginal Community Council Member Language: Industrial Organization Manager Name: Analia BAEZA Information Interpreted: non-clinical & clinical Firer Low Pressure: Firer Low Pressure Present (Analia) Allergies guaifenesin [From MUCINEX] Allergy (Mild, Verified 01/09/23 10:39) HIVES aspirin [Aspirin] Allergy (Unknown, Verified 01/09/23 10:39) UNKNOWN penicillin V Allergy (Unknown, Verified 01/09/23 10:39) Hives Penicillins Allergy (Unknown, Verified 01/09/23 10:39) UNKNOWN poly-ureaurethane [Nuvail] Allergy (Unknown, Verified 01/09/23 10:39) Hives From Nubain Allergy (Unknown, Uncoded 01/09/23 10:39) UNKNOWN Nubain Allergy (Unknown, Uncoded 01/09/23 10:39) Hives Patient states she has no know Allergy (Unknown, Uncoded 01/09/23 10:39) Hives Is last menstrual period known: Yes Last menstrual period: 11/09/22 Post menopausal: No HPI HPI Comments History of Present Illness Details Presenting for annual exam. No complaints. Last Pap/HPV was negative in 11/26 Last Mammogram was BI-RADS 1 in 12/28 No previous screen Colonoscopy PFSH Medical History COVID-19 Asthma Surgical History Hx of tubal ligation Hx of oral surgery Family History Mother No problems noted. Father Heart attack Stroke Diabetes Heart problem Sister Hypertension Pre-diabetes Circulation problem Son No problems noted. Son No problems noted. Daughter No problems noted. 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 Reproductive History Menstrual Age of Menarche: 10 Duration of menses: 3-5 days Date of last menstrual period: 11/09/22 control method: permanent sterilization Total pregnancies: 4 Full term: 4 Number of Living Children: 4 Date of last pap smear: 12/04/21 (negative) Date of Mammogram: 12/25/22 Review of Systems Const All systems reviewed & are unremarkable except as noted in HPI and below Card Reports as per HPI Resp Reports as per HPI GI Reports as per HPI and Reports no additional complaints Reports as per HPI Physical Exam Vital Signs: Last Vital Signs BP 112/66 01/09/23 10:36 BMI result Body Mass Index 40.4 Const General: cooperative, healthy appearing and comfortable Chest Chest palpation & inspection: normal inspection of the chest and normal palpation of entire chest wall Breast/axilla inspection: normal inspection of the breasts and normal inspection of the axillae Breast/axilla palpation: normal palpation of the breasts, normal palpation of the axillae and no axillary lymphadenopathy Resp Effort & Inspection: normal respiratory effort Auscultation: clear to auscultation bilaterally Percussion: percussion normal Cardio Palpation: normal PMI Rate: regular rate Rhythm: regular rhythm Heart sounds: no murmurs and no rubs Peripheral pulses: Peripheral pulses 2+ throughout GI Inspection: Yes normal to inspection Palpation (GI): Soft to palpation, nontender, no guarding, not rigid and No hepatosplenomegaly present Percussion: Yes normal to percussion Auscultation: normal bowel sounds Rectal Exam - Female: deferred General: Yes bladder normal to palpation External Female Exam: No lesion Speculum Exam - Vagina: normal appearance of the vagina, normal palpation, normal vaginal discharge and not erythematous Speculum Exam - Cervix: normal appearance of the cervix and normal palpation Bimanual exam- vagina & uterus: normal bimanual exam, normal palpation, uterine size normal, bladder normal to palpation, consistency normal and normal palpation Bimanual Exam- Adnexa, other: normal adnexae, no masses and no tenderness Assessment & Plan Assessment & Plan (1) Well woman exam: Code(s): Z01.419 - Encounter for gynecological examination (general) (routine) without abnormal findings Plan: Cotesting not indicated this. Instructions given the patient to schedule her next screening Mammogram in 12/29. Counseled the patient about the recommended dietary allowance of 1000 mg of Calcium & 600 IU of vitamin D. The patient has a GI appointment for screening colonoscopy scheduled in few weeks The patient was instructed to perform monthly self-breast exams and to schedule an annual exam in a year; All questions answered and the patient verbalized understanding. Instructed the patient to schedule annual exam in a year Coding Level of Care Code Est Pt Prev Care 40-64y(15099) Diagnoses Well woman exam Z01.419
[2023-01-09 10:36] VITALS: BP 112/66; BMI 40.4
== END 2023-01-09 11:21 | disposition home or self-care (01) ==
LOC: HO.HWS 10:31
PROVIDERS: PCP Family Medicine; Visit Provider Obstetrics & Gynecology
DX: Z01.419 Encounter for gynecological examination (general) (routine) without abnormal findings (principal)
CPT/HCPCS: 99396

== ENCOUNTER → 2023-01-09 10:31 | Outpatient (BNVA) | payer MEDICAID, SELFPAY | PROVIDERS: PCP Family Medicine; Visit Provider Obstetrics & Gynecology | DX: Z01.419 Encounter for gynecological examination (general) (routine) without abnormal findings (principal) | CPT/HCPCS: 99396 ==

== ENCOUNTER 2023-02-06 16:46 | Outpatient (REF) | payer MEDICAID, SELFPAY ==
[2023-02-06 18:03] LABS: Alanine Aminotransferase 19 U/L (0-31); Alkaline Phosphatase 96 U/L (39-117); Aspartate Amino Transferase 17 U/L (5-31); Bilirubin Direct < 0.2 mg/dL (0.0-0.5); Bilirubin Total 0.2 mg/dL (0.0-1.0); Lipase 17 U/L (8-78); Total Protein 7.4 g/dL (6.5-8.0)
[2023-02-13 11:29] LABS: Transglutaminase Ab IgG <1.0 U/mL; Transglutaminase IgA <1.0 U/mL
== END 2023-02-06 16:47 | disposition home or self-care (01) ==
LOC: HO.LAB 16:46
PROVIDERS: PCP Family Medicine; Visit Provider Nurse Practitioner Family
DX: R10.9 Unspecified abdominal pain (principal); K59.00 Constipation, unspecified
CPT/HCPCS: 36415; 80076; 83690; 84443; 86364

== ENCOUNTER → 2023-02-07 11:52 | Outpatient (BNVA) | payer MEDICAID, SELFPAY | PROVIDERS: PCP Family Medicine; Visit Provider Nurse Practitioner Family | DX: Z12.11 Encounter for screening for malignant neoplasm of colon (principal); K21.9 Gastro-esophageal reflux disease without esophagitis; K59.04 Chronic idiopathic constipation; K58.2 Mixed irritable bowel syndrome; R10.9 Unspecified abdominal pain; G89.29 Other chronic pain | CPT/HCPCS: 99212 ==

== ENCOUNTER 2023-02-07 11:53 | Outpatient (AMB) | payer MEDICAID, SELFPAY ==
--- NOTE | 2023-02-07 12:12 | MHC.OFFVIS ---
Intake Vital Signs 02/07/23 12:15 Height 5 ft 3 in Weight 222 lb BMI 39.3 BP 103/63 Blood Pressure Location Lt brachial Position Sitting Pulse 68 Intake Visit Reasons: 3 week follow up Intake Note: Patient follow up abdominal pain and Pre Colonoscopy and EGD screening. Patient cc: abdominal pain with bloating, GERD, and between diarrhea and constipation. Pathological Technician Required: Yes Accompanied by: Self / Same As Patient Allergies guaifenesin [From MUCINEX] Allergy (Mild, Verified 02/07/23 12:12) HIVES aspirin [Aspirin] Allergy (Unknown, Verified 02/07/23 12:12) UNKNOWN penicillin V Allergy (Unknown, Verified 02/07/23 12:12) Hives Penicillins Allergy (Unknown, Verified 02/07/23 12:12) UNKNOWN poly-ureaurethane [Nuvail] Allergy (Unknown, Verified 02/07/23 12:12) Hives From Nubain Allergy (Unknown, Uncoded 01/09/23 10:39) UNKNOWN Nubain Allergy (Unknown, Uncoded 01/09/23 10:39) Hives Patient states she has no know Allergy (Unknown, Uncoded 01/09/23 10:39) Hives HPI 3 week follow up HPI Details LAST VISIT: Screen for colon cancer Denies any issues with anesthesia in the past.? Denies any history of sleep apnea.? No history infectious diseases in the past or present.? Not on any anticoagulation therapy.? No family or personal history of colon cancer or polyps.? Patient denies melena, hematochezia, unintentional weight loss or ribbon like stools.? Patient has severe abdominal discomfort postprandially, epigastric discomfort, severe constipation. Reports nausea and occasional vomiting. Patient will have more testing before going for colonoscopy. Chronic abdominal pain Epigastric abdominal discomfort with dyspepsia, without dysphagia or odynophagia. Will check lipase, liver profile, transglutaminase. GERD (gastroesophageal reflux disease) Patient will return on Friday for H pylori breath test. She will hold famotidine on Friday. Patient can take Tums on as needed basis. We will treat her empirically if positive. I will start her on PPI on Friday after that test. Patient will be sent for upper endoscopy when she goes for colonoscopy. Chronic idiopathic constipation Reports severe constipation. Patient states that she has been dealing with this for some time. Will start her on Senokot. Patient was encouraged to increase fluid intake and activity to promote better bowel motility. Patient will let me know if this is not working we will start her on Linzess. I will see her in 3 weeks, sooner on as needed basis. Patient is agreeable to this plan and verbalizes understanding of instructions. She was given the opportunity to ask questions and all questions answered. ? Thank you for allowing me to participate in her care Plan Orders Orders H Pylori Breath Test Today Transglutaminase Ab IgG Today R10.9 Transglutaminase IgA Today R10.9 Liver Panel Today R10.9 Lipase Today R10.9 TSH reflex Free T4 Today K59.00 Medications New sennosides (Natural Senna Laxative) 17.2 mg (2 x 8.6 mg) PO BEDTIME 180 tabs 3RF constipation K59.00 ondansetron 4 mg PO Q8H PRN 20 tabs 0RF nausea and vomiting R11.0 TODAY'S VISIT Patient is here today for follow-up and to discuss going for colonoscopy. Patient reports that she still has occasional postprandial epigastric discomfort with dyspepsia, without dysphagia or odynophagia. All her lab work was discussed with patient. Patient had normal lipase and normal liver enzymes. She denies any abdominal pain or discomfort except for postprandial abdominal bloating. Patient continues to have occasional postprandial loose stools and then constipation.. H pylori was negative, however patient reports frequent acid reflux. Patient denies any melena, hematochezia, unintentional weight loss or ribbon like stools. Patient reports that she is moving her bowels better, senna helps. Patient denies any nausea or vomiting. Patient is not on any anticoagulation medication. No history of sleep apnea. Patient denies any respiratory or cardiac symptoms. PFSH Medical History COVID-19 Asthma Surgical History Hx of tubal ligation Hx of oral surgery Family History Mother No problems noted. Father Heart attack Stroke Diabetes Heart problem Sister Hypertension Pre-diabetes Circulation problem Son No problems noted. Son No problems noted. Daughter No problems noted. 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 Reproductive History Menstrual Age of Menarche: 10 Physical Exam Vital Signs: Last Vital Signs Pulse 68 02/07/23 12:15 BP 103/63 02/07/23 12:15 BMI result Body Mass Index 39.3 Const General: healthy appearing, no acute distress and well developed Nutritional Appearance: obese Orientation/consciousness: patient oriented x3 HEENT Head: Yes normal to inspection, Yes normocephalic and Yes atraumatic Face and sinus: Yes normal facial exam Mouth: Normal oral and palatal mucosa present Throat: Yes posterior oropharynx normal, Yes tonsils normal and Yes uvula midline Eyes General: appearance normal, both eyes and all related structures Neck Neck: Yes normal visual inspection, Yes full ROM and Yes trachea midline Thyroid: Thyroid normal Resp Effort & Inspection: normal respiratory effort, able to speak in complete sentences, no tracheal deviation and symmetric chest movement Auscultation: clear to auscultation bilaterally Cardio Rate: regular rate Heart sounds: S1 normal heart sound present and S2 normal heart sound present GI Inspection: Yes normal to inspection, No distended and Yes obesity Palpation (GI): Soft to palpation, not firm, nontender and No hepatosplenomegaly present Auscultation: normal bowel sounds General: Yes no CVA tenderness Back/Spine/Pelvis Back: no CVA tenderness Skin General skin exam: elasticity normal, turgor normal and dry skin Neuro General: patient oriented x3 Psych Appearance: grossly normal Mental Status: mental status grossly normal Affect: normal affect Results Reviewed Results Reviewed: Laboratory Tests 12/16/22 02/06/23 02/06/23 08:57 16:56 16:56 Total Bilirubin 0.2 Direct Bilirubin < 0.2 AST 17 ALT 19 Lipase 17 TSH 1.60 H. pylori Breath Test Negative Assessment & Plan Assessment & Plan (1) Chronic abdominal pain: Code(s): R10.9 - Unspecified abdominal pain; G89.29 - Other chronic pain (2) Screen for colon cancer: Code(s): Z12.11 - Encounter for screening for malignant neoplasm of colon (3) GERD (gastroesophageal reflux disease): Code(s): K21.9 - Gastro-esophageal reflux disease without esophagitis Qualifiers: Esophagitis presence: esophagitis presence not specified Qualified Code(s): K21.9 - Gastro-esophageal reflux disease without esophagitis (4) Chronic idiopathic constipation: Code(s): K59.04 - Chronic idiopathic constipation (5) IBS (irritable bowel syndrome): Code(s): K58.9 - Irritable bowel syndrome without diarrhea Qualifiers: Irritable bowel syndrome type: with both diarrhea and constipation Qualified Code(s): K58.2 - Mixed irritable bowel syndrome Plan Patient will start taking lansoprazole in the morning and sucralfate at bedtime. I will send her for upper endoscopy to rule out gastritis, esophagitis, Tavarez's, duodenitis, gastric or peptic ulcers. H pylori was negative VR bread this, will confirm with biopsy. Patient will also go for colonoscopy. Patient denies any issues with anesthesia. Patient denies melena, hematochezia, unintentional weight loss of in like stools. No family history of colorectal cancer. What to expect before during and after procedure discussed with patient. The importance of good bowel prep discussed with patient. Patient will follow-up in the office after the procedure. She is agreeable to this plan and verbalizes understanding of instructions. She was given the opportunity to ask questions and all questions answered. Thank you for allowing me to participate in her care Medications: New sucralfate 1 g PO BEDTIME 30 tabs 4RF R19.7 - Diarrhea, unspecified bisacodyl (Dulcolax (bisacodyl)) take 4 tabs at noon the day before your colonoscopy 20 mg (4 x 5 mg) PO ONCE 4 tabs 0RF 1 day Z12.11 - Encounter for screening for malignant neoplasm of colon polyethylene glycol 3350 (Miralax) As directed by gastroenterology department at [facility] 238 grams PO ONCE 238 grams 0RF Z12.11 - Encounter for screening for malignant neoplasm of colon lansoprazole 30 mg PO DAILY 30 caps 3RF K21.9 - Gastro-esophageal reflux disease without esophagitis Coding Level of Care Code Est Pt Level 4 (82232) Diagnoses Chronic abdominal pain R10.9; G89.29 Screen for colon cancer Z12.11 Gastroesophageal reflux disease, unspecified whether esophagitis present K21.9 Esophagitis presence: esophagitis presence not specified Chronic idiopathic constipation K59.04 Irritable bowel syndrome with both constipation and diarrhea K58.2 Irritable bowel syndrome type: with both diarrhea and constipation Time Spent (min) 40 Comment 25 minutes spent with patient and additional 15 minutes spent reviewing her records
[2023-02-07 12:15] VITALS: BP 103/63; PULSE 68; BMI 39.3
== END 2023-02-07 13:45 | disposition home or self-care (01) ==
PROVIDERS: PCP Family Medicine; Visit Provider Nurse Practitioner Family
DX: R10.9 Unspecified abdominal pain (principal); G89.29 Other chronic pain; Z12.11 Encounter for screening for malignant neoplasm of colon; K21.9 Gastro-esophageal reflux disease without esophagitis; K59.04 Chronic idiopathic constipation; K58.2 Mixed irritable bowel syndrome
CPT/HCPCS: 99214

== ENCOUNTER 2023-02-26 11:49 | Outpatient (REF) | payer MEDICAID, SELFPAY ==
[2023-02-26 13:25] LABS: Influenza A PCR NEGATIVE (Negative); Influenza B PCR NEGATIVE (Negative); Resp Syncy Virus RNA Qual PCR NEGATIVE (Negative); SARS COV2 PCR INHOUSE NEGATIVE (Negative)
== END 2023-02-26 11:50 | disposition home or self-care (01) ==
LOC: HO.HHCLNP 11:49
PROVIDERS: Visit Provider Nurse Practitioner Family
DX: Z11.52 Encounter for screening for COVID-19 (principal); R05.9 Cough, unspecified
CPT/HCPCS: 0241U

== ENCOUNTER 2023-05-29 07:50 | Day surgery (SDC) | payer MEDICAID, SELFPAY ==
[2023-05-27 11:36] VITALS: BMI 39.3
--- NOTE | 2023-05-28 10:46 | HO.ANESPROP2 ---
Documented by User: Milagros Shaw NP 05/28/23 10:47 HPI - Anesthesia Eval Consult details Narrative: 48yo F for Upper Endoscopy and Colonoscopy PMFSH Active Problems Active Problems: All Active Problems (Updated 10/02/22 @ 11:10 by Jeffrey Monroe MD) Shortness of breath (Acute) Heart palpitations (Acute) Precordial chest pain (Acute) Well woman exam (Acute) Morbid obesity (Acute) Chronic abdominal pain (Acute) Nephrolithiasis (Acute) High cholesterol (Acute) Obesity (Acute) Bilateral knee pain (Acute) Asthma (Acute) Past Medical History Medical History COVID-19 Asthma Family History Family History Mother No problems noted. Father Heart attack Stroke Diabetes Heart problem Sister Hypertension Pre-diabetes Circulation problem Son No problems noted. Son No problems noted. Daughter No problems noted. 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 Allergies Allergy/AdvReac Type Severity Reaction Status Date / Time guaifenesin [From MUCINEX] Allergy Mild HIVES Verified 05/29/23 08:38 aspirin [Aspirin] Allergy Unknown UNKNOWN Verified 05/29/23 08:38 penicillin V Allergy Unknown Hives Verified 05/29/23 08:38 Penicillins Allergy Unknown UNKNOWN Verified 05/29/23 08:38 poly-ureaurethane [Nuvail] Allergy Unknown Hives Verified 05/29/23 08:38 From Nubain Allergy Unknown UNKNOWN Uncoded 05/29/23 08:38 Nubain Allergy Unknown Hives Uncoded 05/29/23 08:38 Patient states she has no Allergy Unknown Hives Uncoded 05/29/23 08:38 know Exam Height,Weight and Vital Signs: Height 5 ft 3 in Weight 100.698 kg Assessment and Plan Assessment Anesthesia Assessment: Chart Reviewed Documented by User: Gilson Jacobsen MD 05/29/23 08:47 [facility] Past Medical History Medical History COVID-19 Asthma Functional capacity: independent ambulation Patient : No Family History Family History Mother No problems noted. Father Heart attack Stroke Diabetes Heart problem Sister Hypertension Pre-diabetes Circulation problem Son No problems noted. Son No problems noted. Daughter No problems noted. 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 Allergies Allergy/AdvReac Type Severity Reaction Status Date / Time guaifenesin [From MUCINEX] Allergy Mild HIVES Verified 05/29/23 08:38 aspirin [Aspirin] Allergy Unknown UNKNOWN Verified 05/29/23 08:38 penicillin V Allergy Unknown Hives Verified 05/29/23 08:38 Penicillins Allergy Unknown UNKNOWN Verified 05/29/23 08:38 poly-ureaurethane [Nuvail] Allergy Unknown Hives Verified 05/29/23 08:38 From Nubain Allergy Unknown UNKNOWN Uncoded 05/29/23 08:38 Nubain Allergy Unknown Hives Uncoded 05/29/23 08:38 Patient states she has no Allergy Unknown Hives Uncoded 05/29/23 08:38 know Exam Airway Mallampati Class: II TM Dist: >3cm Neck ROM: Full Loose/Missing/Broken Teeth: No Heart: rrr Lungs: cta b/l Assessment and Plan Assessment Anesthesia Assessment: Anesthesia Plan Discussed Final Anesthetic Review Family History of Problems with Anesthesia: No History of Problems with Anesthesia: No NPO: Yes ASA Class: II Final Preanesthetic Review: No Changes in Pt Med Stat, Meds/Allgs Chart Reviewed, Consent Obtained/Reviewed and Anes Risks/Benef Reviewed Patient Risk: Intermediate Procedure Risk: Intermediate Anesthetic Plan Anesthetic Plan: MAC: Disposition: Standard PACU
[2023-05-29 08:27] VITALS: BMI 39.1
[2023-05-29 08:49] VITALS: BP 137/71; PULSE 73; RESP 16; TEMP 36.8; O2SAT 99
[2023-05-29] MEDS: Lactated Ringers 1,000 ML 100 ML IVCONT (09:03)
--- NOTE | 2023-05-29 09:16 | MHC.SHP ---
Pre-Procedural Eval Section A - 24 Hr Update-Section A only Date of Service: 05/29/23 Section B - Complete if H&P > 30 days Chief Complaint: altered bowel habit, post prandial pain Relevant Family History (Specify if Yes): No Relevant Social History: None Present Medications: see Short Stay Collaborative assessment Medical History: Significant History (COVID-19 Asthma) History of Previous Operations: Relevant previous surgery/procedure and date(s) (Hx of tubal ligation Hx of oral surgery) Allergies: Allergies Allergy/AdvReac Type Severity Reaction Status Date / Time guaifenesin [From MUCINEX] Allergy Mild HIVES Verified 05/29/23 08:38 aspirin [Aspirin] Allergy Unknown UNKNOWN Verified 05/29/23 08:38 penicillin V Allergy Unknown Hives Verified 05/29/23 08:38 Penicillins Allergy Unknown UNKNOWN Verified 05/29/23 08:38 poly-ureaurethane [Nuvail] Allergy Unknown Hives Verified 05/29/23 08:38 From Nubain Allergy Unknown UNKNOWN Uncoded 05/29/23 08:38 Nubain Allergy Unknown Hives Uncoded 05/29/23 08:38 Patient states she has no Allergy Unknown Hives Uncoded 05/29/23 08:38 know Review of Systems Sugical H&P ROS: Negative: Constitution, Cardiovascular, Respiratory, Neurological, Psychiatric, Hem-Onc, Allergic/Immunologic, Gastrointestinal, Genitourinary, Musculoskeletal, Integumentary, Endocrine and Eyes/Ears/Nose/Throat Exam Surgical H&P Exam: Normal: HEENT, Normal: Heart, Normal: Lungs, Normal: Extremities, Normal: Abdomen, Normal: Skin and Normal: Neurological Plan Diagnosis/Plan: Unchanged I have reviewed the history and physical and performed a pertinent physical examination on my patient. No changes have occurred unless specified. Time Spent With Patient Time: Total time managing care of this patient today ____ minutes.
--- NOTE | 2023-05-29 10:32 | P.OP_ITS ---
Operative Note Operative Note Date of Service: 05/29/23 Narrative: Operative Information Procedure Description: EGD, Colonoscopy Indication: abn bowel habit, post prandial pain Anesthesia: MAC FLEXIBLE TRANSORAL UPPER GASTROINTESTINAL ENDOSCOPY AND COLONOSCOPY PROCEDURE NOTE UPPER ENDOSCOPY Consent: Indications for the procedure and potential complications of bleeding, perforation, reaction to medications and missed diagnosis were discussed with the patient and informed consent was obtained. Instrument: Olympus GIF H 190 J mid size upper endoscope Monitoring: Vital signs and clinical assessment, continuous EKG monitoring, Pulse oximetry, Carbon Dioxide monitoring and blood pressure monitoring were done throughout the procedure. Procedure: The patient was placed in the left lateral decubitis position and pre-procedure medications were administered and a bite block was placed. The endoscope was inserted into the mouth and advanced under direct vision to the third part of duodenum. A careful inspection was made as the upper endoscope was withdrawn including a retroflexed examination of the proximal stomach; Findings and interventions are described below. Findings: Larynx:normal Esophagus: GE junction at 38 cm, diaphragm hiatus at 38 cm, schatzki ring noted, midl esophagitis, bx taken from GEJ, distal and proximal esophagus Stomach: Patchy erythema. Biopsies were obtained. Grade 2 flap valve on retroflexed examination of the cardia. Lax LES Duodenum: Normal bulb and descending duodenum, bx taken Intervention: Biopsies as noted above COLONOSCOPY Instrument: Olympus variable stiffness pediatric scope 190L Colonoscopy Monitoring: Vital signs and clinical assessment, continuous EKG monitoring, Pulse oximetry, Carbon Dioxide monitoring and blood pressure monitoring were done throughout the procedure. Colon withdrawal time was 10 minutes. Procedure: The patient was placed in the left lateral decubitis position and pre-procedure medications were administered. After a digital rectal examination of the ano-rectum, the video colonoscope was inserted into the rectum and advanced through the colon to the cecum/TI. The colonoscope was slowly withdrawn in a retrograde panoramic fashion and the colon mucosa was carefully examined including a retroflexed view of the rectum. Findings and interventions are described below. Procedure Difficulty:easy Findings: Terminal Ileum-normal, bx taken Random colon bx taken Cecum:normal Ascending Colon: normal Transverse Colon -normal Descending Colon:normal Sigmoid Colon: mild diverticulosis Rectum: Retroflexion with medium sized internal hemorrhoids, grade I Anorectum - normal Colon preparation: [place] Bowel Preparation Scale Right colon; 2 Transverse colon: 2 Left colon; 2 (0 = Unprepared colon segment with mucosa not seen due to solid stool that cannot be cleared. 1 = Portion of mucosa of the colon segment seen, but other areas of the colon segment not well seen due to staining, residual stool and/or opaque liquid. 2 = Minor amount of residual staining, small fragments of stool and/or opaque liquid, but mucosa of colon segment seen well. 3 = Entire mucosa of colon segment seen well with no residual staining, small fragments of stool or opaque liquid) Impression and Post Procedure Diagnosis: Endoscopy Findings: lax LES esophagitis gastritis, Colonoscopy Findings: internal hemorrhoids diverticular disease Plan: Await Pathology results Repeat Colonoscopy in 10 years or earlier if clinically indicated High fiber diet leaflet avoid straining at stool, epsom salts and sitz bath, anusol supps or cream If H pylori pos then treat Above findings were reviewed with the patient and relevant handouts were provided if indicated.
[2023-05-29 10:44] VITALS: BP 115/76; PULSE 83; RESP 16; TEMP 36.2; O2SAT 99
[2023-05-29 11:00] VITALS: BP 139/83; PULSE 64; RESP 16; O2SAT 98
[2023-05-29 11:15] VITALS: BP 152/88; PULSE 64; RESP 16; TEMP 36.2; O2SAT 100
== END 2023-05-29 12:37 | disposition home or self-care (01) ==
PROVIDERS: PCP Family Medicine; Visit Provider Internal Medicine Gastroenterology
PROC: (CPT 45380; principal; 2023-05-29 10:00)
DX: R19.4 Change in bowel habit (principal); R19.7 Diarrhea, unspecified; K57.30 Diverticulosis of large intestine without perforation or abscess without bleeding; K64.0 First degree hemorrhoids; K21.9 Gastro-esophageal reflux disease without esophagitis; K22.70 Barrett's esophagus without dysplasia; K22.4 Dyskinesia of esophagus; K29.50 Unspecified chronic gastritis without bleeding; K29.80 Duodenitis without bleeding; K22.2 Esophageal obstruction; K44.9 Diaphragmatic hernia without obstruction or gangrene; J45.909 Unspecified asthma, uncomplicated; Z79.899 Other long term (current) drug therapy; Z88.0 Allergy status to penicillin; Z88.8 Allergy status to other drugs, medicaments and biological substances; Z86.16 Personal history of COVID-19
CPT/HCPCS: 45380; 43239; 88305; 88313; 88342; J1596; J2704

== ENCOUNTER → 2023-05-29 07:50 | Outpatient (BNV) | payer MEDICAID, SELFPAY | PROVIDERS: PCP Family Medicine; Visit Provider Internal Medicine Gastroenterology | DX: K22.4 Dyskinesia of esophagus (principal); K20.90 Esophagitis, unspecified without bleeding; K29.70 Gastritis, unspecified, without bleeding; K57.90 Diverticulosis of intestine, part unspecified, without perforation or abscess without bleeding; K64.8 Other hemorrhoids | CPT/HCPCS: 43239; 45380 ==

== ENCOUNTER 2023-06-11 09:55 | Outpatient (AMB) | payer MEDICAID, SELFPAY ==
--- NOTE | 2023-06-11 09:57 | MHC.OFFVIS ---
Intake Vital Signs 06/11/23 10:07 Height 5 ft 3 in Weight 237 lb BMI 42.0 BP 124/62 Blood Pressure Location Lt brachial Position Sitting Pulse 78 Intake Visit Reasons: S/P marcela; Tali Jane Intake Note: Patient is seen in office for post op assessment post upper endoscopy and colonoscopy. Pt c/o: admit to bloating, denies any other concerns Veterinary Assistant Technician Required: No Accompanied by: Self / Same As Patient Allergies guaifenesin [From MUCINEX] Allergy (Mild, Verified 06/11/23 10:08) HIVES aspirin [Aspirin] Allergy (Unknown, Verified 06/11/23 10:08) UNKNOWN penicillin V Allergy (Unknown, Verified 06/11/23 10:08) Hives Penicillins Allergy (Unknown, Verified 06/11/23 10:08) UNKNOWN poly-ureaurethane [Nuvail] Allergy (Unknown, Verified 06/11/23 10:08) Hives From Nubain Allergy (Unknown, Uncoded 06/11/23 10:08) UNKNOWN Nubain Allergy (Unknown, Uncoded 06/11/23 10:08) Hives Patient states she has no know Allergy (Unknown, Uncoded 06/11/23 10:08) Hives HPI S/P marcela; Tali Jane HPI Details LAST VISIT Chronic abdominal pain Screen for colon cancer GERD (gastroesophageal reflux disease) Chronic idiopathic constipation IBS (irritable bowel syndrome) Plan Patient will start taking lansoprazole in the morning and sucralfate at bedtime. I will send her for upper endoscopy to rule out gastritis, esophagitis, Tavarez's, duodenitis, gastric or peptic ulcers. H pylori was negative VR bread this, will confirm with biopsy. Patient will also go for colonoscopy. Patient denies any issues with anesthesia. Patient denies melena, hematochezia, unintentional weight loss of in like stools. No family history of colorectal cancer. What to expect before during and after procedure discussed with patient. The importance of good bowel prep discussed with patient. Patient will follow-up in the office after the procedure. She is agreeable to this plan and verbalizes understanding of instructions. She was given the opportunity to ask questions and all questions answered. ? Thank you for allowing me to participate in her care Medications New sucralfate 1 g PO BEDTIME 30 tabs 4RF R19.7 bisacodyl (Dulcolax (bisacodyl)) take 4 tabs at noon the day before your colonoscopy 20 mg (4 x 5 mg) PO ONCE 4 tabs 0RF 1 day Z12.11 polyethylene glycol 3350 (Miralax) As directed by gastroenterology department at [facility] 238 grams PO ONCE 238 grams 0RF Z12.11 lansoprazole 30 mg PO DAILY 30 caps 3RF K21.9 UPPER ENDOSCOPY AND COLONOSCOPY Upper endoscopy Findings: Larynx:normal Esophagus: GE junction at 38 cm, diaphragm hiatus at 38 cm, schatzki ring noted, midl esophagitis, bx taken from GEJ, distal and proximal esophagus Stomach: Patchy erythema. Biopsies were obtained. Grade 2 flap valve on retroflexed examination of the cardia. Lax LES Duodenum: Normal bulb and descending duodenum, bx taken Intervention: Biopsies as noted above Colonoscopy Findings: Terminal Ileum-normal, bx taken Random colon bx taken Cecum:normal Ascending Colon: normal Transverse Colon -normal Descending Colon:normal Sigmoid Colon: mild diverticulosis Rectum: Retroflexion with medium sized internal hemorrhoids, grade I Anorectum - normal Colon preparation: [place] Bowel Preparation Scale Right colon; 2 Transverse colon: 2 Left colon; 2 (0 = Unprepared colon segment with mucosa not seen due to solid stool that cannot be cleared. 1 = Portion of mucosa of the colon segment seen, but other areas of the colon segment not well seen due to staining, residual stool and/or opaque liquid. 2 = Minor amount of residual staining, small fragments of stool and/or opaque liquid, but mucosa of colon segment seen well. 3 = Entire mucosa of colon segment seen well with no residual staining, small fragments of stool or opaque liquid) Impression and Post Procedure Diagnosis: Endoscopy Findings: lax LES esophagitis gastritis, Colonoscopy Findings: internal hemorrhoids diverticular disease Plan: Await Pathology results Repeat Colonoscopy in 10 years or earlier if clinically indicated High fiber diet leaflet avoid straining at stool, epsom salts and sitz bath, anusol supps or cream If H pylori pos then treat PATHOLOGY RESULTS Diagnosis A. Terminal ileum, biopsy: Terminal ileal mucosa within normal limits. B. Colon, random, biopsy: Colonic mucosa within normal limits. C. Duodenum, biopsy: Chronic inactive duodenitis. D. Stomach, biopsy: Oxyntic mucosa with mild chronic inactive inflammation; no Helicobacter organisms seen. E. GE junction, biopsy: - Tavarez esophagus with background mild chronic inactive inflammation. - No dysplasia seen. - Active esophagitis (maximum eosinophil count 1 per high powered field). F. Esophagus, distal, biopsy: Squamous epithelium within normal limits; no inflammation seen. G. Esophagus, proximal, biopsy: Squamous mucosa within normal limits; no inflammation seen. TODAY'S VISIT: Patient is here today for follow-up and to discuss upper endoscopy and colonoscopy results. Patient denies any ill effects from the prep, anesthesia or procedure itself. Patient reports that she has been feeling well. Diagnosed with Tavarez's esophagus at the GE junction. Mild active esophagitis, no inflammation in distal or proximal esophagus. Patient was found to have mild diverticulosis in sigmoid colon, no polyps found. Internal hemorrhoids. Patient denies melena, hematochezia, unintentional weight loss or ribbon like stools. Patient reports occasional bloating, however denies any abdominal pain or discomfort. Patient is trying to lose weight. Reports that lansoprazole and sucralfate help her with acid reflux. Patient denies any dyspepsia, dysphagia or odynophagia. [facility] Medical History (Updated 06/13/23 @ 20:12 by Roopa Mayo, [facility]) Tavarez's esophagus without dysplasia Diverticulosis COVID-19 Asthma Surgical History (Updated 06/11/23 @ 10:10 by FELISHA Ray) Hx of colonoscopy (05/29/23) History of esophagogastroduodenoscopy (EGD) (05/29/23) Hx of tubal ligation Hx of oral surgery Family History Mother No problems noted. Father Heart attack Stroke Diabetes Heart problem Sister Hypertension Pre-diabetes Circulation problem Son No problems noted. Son No problems noted. Daughter No problems noted. 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 Reproductive History Menstrual Age of Menarche: 10 Review of Systems Const Denies weight gain and Denies weight loss ENT Reports no additional complaints, Denies dysphagia and Denies odynophagia Card Reports no additional complaints Resp Reports no additional complaints GI Denies abdominal pain, Denies belching, Denies melena, Reports bloating, Denies change in bowel habits, Denies dysphagia, Denies excessive flatus, Denies dyspepsia, Denies heartburn, Denies diarrhea, Denies loose stools, Denies nausea, Denies odynophagia and Denies vomiting Reports no additional complaints Musc Reports no additional complaints Neuro Reports no additional complaints Psych Reports no additional complaints Endo Reports no additional complaints Physical Exam Vital Signs: Last Vital Signs Pulse 78 06/11/23 10:07 BP 124/62 06/11/23 10:07 BMI result Body Mass Index 42.0 Const General: healthy appearing, no acute distress and well developed Nutritional Appearance: obese Orientation/consciousness: patient oriented x3 Resp Effort & Inspection: normal respiratory effort, able to speak in complete sentences, no tracheal deviation and symmetric chest movement Auscultation: clear to auscultation bilaterally Cardio Rate: regular rate GI Inspection: Yes normal to inspection, No distended and Yes obesity Palpation (GI): Soft to palpation, not firm, nontender and No hepatosplenomegaly present Auscultation: normal bowel sounds General: Yes no CVA tenderness Back/Spine/Pelvis Back: no CVA tenderness Skin General skin exam: elasticity normal, turgor normal and dry skin Neuro General: patient oriented x3 Psych Appearance: grossly normal Mental Status: mental status grossly normal Assessment & Plan Assessment & Plan (1) Chronic abdominal pain: Code(s): R10.9 - Unspecified abdominal pain; G89.29 - Other chronic pain (2) Diverticulosis: Code(s): K57.90 - Diverticulosis of intestine, part unspecified, without perforation or abscess without bleeding (3) Tavarez's esophagus without dysplasia: Code(s): K22.70 - Tavarez's esophagus without dysplasia (4) GERD (gastroesophageal reflux disease): Code(s): K21.9 - Gastro-esophageal reflux disease without esophagitis Qualifiers: Esophagitis presence: with esophagitis Esophagitis bleeding: without hemorrhage Qualified Code(s): K21.00 - Gastro-esophageal reflux disease with esophagitis, without bleeding (5) Chronic idiopathic constipation: Code(s): K59.04 - Chronic idiopathic constipation (6) IBS (irritable bowel syndrome): Code(s): K58.9 - Irritable bowel syndrome without diarrhea Qualifiers: Irritable bowel syndrome type: without diarrhea Qualified Code(s): K58.9 - Irritable bowel syndrome without diarrhea (7) Tavarez's esophagus without dysplasia: Code(s): K22.70 - Tavarez's esophagus without dysplasia Plan Continue current treatment with lansoprazole and famotidine. Discussed with patient avoiding dietary triggers and late night snacking. Diagnosed with Tavarez's esophagus at GE junction. Repeat upper endoscopy in 3 years, sooner if clinically necessary. Colonoscopy showed no polyps, colonoscopy recall in 10 years, sooner if symptomatic. The importance of staying upright for minimum 3 hours after meals discussed with patient. Diverticulosis found in sigmoid colon. High fiber diet discussed with patient. List of food high in fiber given to patient. Patient can take [id number] Citrucel. Patient reports that she is not eating vegetables, trying to introduce more vegetables in her diet. I will see patient in 3 months, sooner on as needed basis. Patient is agreeable to this plan and verbalizes understanding of instructions. She was given the opportunity to ask questions and all questions answered. Thank you for allowing me to participate in her care Medications: New methylcellulose (laxative) (Citrucel) take it with full glass of water 500 mg PO DAILY 90 tabs 2RF K59.00 - Constipation, unspecified Refilled sucralfate 1 g PO BEDTIME 30 tabs 4RF R19.7 - Diarrhea, unspecified lansoprazole 30 mg PO DAILY 30 caps 3RF K21.9 - Gastro-esophageal reflux disease without esophagitis Coding Level of Care Code Est Pt Level 3 (83865) Diagnoses Chronic abdominal pain R10.9; G89.29 Diverticulosis K57.90 Tavarez's esophagus without dysplasia K22.70 Gastroesophageal reflux disease with esophagitis without hemorrhage K21.00 Esophagitis presence: with esophagitis Esophagitis bleeding: without hemorrhage Chronic idiopathic constipation K59.04 Irritable bowel syndrome without diarrhea K58.9 Irritable bowel syndrome type: without diarrhea Time Spent (min) 30 Comment 20 minutes spent with patient and additional 10 minutes spent reviewing her records
[2023-06-11 10:07] VITALS: BP 124/62; PULSE 78; BMI 42.0
== END 2023-06-11 11:28 | disposition home or self-care (01) ==
PROVIDERS: PCP Family Medicine; Visit Provider Nurse Practitioner Family
DX: R10.9 Unspecified abdominal pain (principal); G89.29 Other chronic pain; K57.90 Diverticulosis of intestine, part unspecified, without perforation or abscess without bleeding; K22.70 Barrett's esophagus without dysplasia; K21.00 Gastro-esophageal reflux disease with esophagitis, without bleeding; K59.04 Chronic idiopathic constipation; K58.9 Irritable bowel syndrome, unspecified
CPT/HCPCS: 99213

== ENCOUNTER → 2023-06-11 09:55 | Outpatient (BNVA) | payer MEDICAID, SELFPAY | PROVIDERS: PCP Family Medicine; Visit Provider Nurse Practitioner Family | DX: Z51.89 Encounter for other specified aftercare (principal); R10.9 Unspecified abdominal pain; G89.29 Other chronic pain; K57.90 Diverticulosis of intestine, part unspecified, without perforation or abscess without bleeding; K22.70 Barrett's esophagus without dysplasia; K21.00 Gastro-esophageal reflux disease with esophagitis, without bleeding; K59.04 Chronic idiopathic constipation; K58.9 Irritable bowel syndrome, unspecified | CPT/HCPCS: 99212 ==

== ENCOUNTER 2023-09-12 10:02 | Outpatient (AMB) | payer MEDICAID, SELFPAY ==
--- NOTE | 2023-09-12 10:03 | A.OFFVIS_ITS ---
Vital Signs 09/12/23 10:14 Height 5 ft 3 in Weight 238 lb 1.588 oz BMI 42.2 BP 128/70 Blood Pressure Location Rt brachial Position Sitting Pulse 64 Pulse Source Pulse Oximeter Pulse Oximetry (%) 98 Oxygen Delivery Method Room Air Intake Visit Reasons: 3 month follow up Intake Note: Anahi presents in office today for a scheduled FUV. CC; Pt reports that she is here today for the FUV, pt denies any significant sx or concerns at this time. Teacher Emotionally Impaired Required: Yes Teacher Emotionally Impaired Name: Sandra [id number] Allergies guaifenesin [From MUCINEX] Allergy (Mild, Verified 09/12/23 10:10) HIVES aspirin [Aspirin] Allergy (Unknown, Verified 09/12/23 10:10) UNKNOWN penicillin V Allergy (Unknown, Verified 09/12/23 10:10) Hives Penicillins Allergy (Unknown, Verified 09/12/23 10:10) UNKNOWN poly-ureaurethane [Nuvail] Allergy (Unknown, Verified 09/12/23 10:10) Hives From Nubain Allergy (Unknown, Uncoded 06/11/23 10:08) UNKNOWN Nubain Allergy (Unknown, Uncoded 06/11/23 10:08) Hives Patient states she has no know Allergy (Unknown, Uncoded 06/11/23 10:08) Hives HPI HPI 3 month follow up: Details: LAST VISIT: Chronic abdominal pain Diverticulosis Tavarez's esophagus without dysplasia GERD (gastroesophageal reflux disease) Chronic idiopathic constipation IBS (irritable bowel syndrome) Tavarez's esophagus without dysplasia Plan Continue current treatment with lansoprazole and famotidine. Discussed with patient avoiding dietary triggers and late night snacking. Diagnosed with Tavarez's esophagus at GE junction. Repeat upper endoscopy in 3 years, sooner if clinically necessary. Colonoscopy showed no polyps, colonoscopy recall in 10 years, sooner if symptomatic. The importance of staying upright for minimum 3 hours after meals discussed with patient. Diverticulosis found in sigmoid colon. High fiber diet discussed with patient. List of food high in fiber given to patient. Patient can take [id number] Citrucel. Patient reports that she is not eating vegetables, trying to introduce more vegetables in her diet. I will see patient in 3 months, sooner on as needed basis. Patient is agreeable to this plan and verbalizes understanding of instructions. She was given the opportunity to ask questions and all questions answered. ? Thank you for allowing me to participate in her care Medications New methylcellulose (laxative) (Citrucel) take it with full glass of water 500 mg PO DAILY 90 tabs 2RF K59.00 Refilled sucralfate 1 g PO BEDTIME 30 tabs 4RF R19.7 lansoprazole 30 mg PO DAILY 30 caps 3RF K21.9 TODAY'S VISIT Patient is here today for follow-up. Patient reports that she is doing better now. Patient reports that she believes that her symptoms were related to Ozempic. Patient was trying to lose weight for her spine surgery and took Ozempic 1 dose and developed severe epigastric pain and since stopped. Currently is taking omeprazole daily, no longer is using sucralfate at bedtime. Patient reports that she is also moving her bowels better now. Eating health ier, however still is having hard time losing weight. Patient denies dyspepsia, dysphagia or odynophagia. Denies melena, hematochezia, unintentional weight loss or ribbon like stools. Patient feels like her symptoms of acid reflux are well controlled with omeprazole. [facility] Medical History Tavarez's esophagus without dysplasia Diverticulosis COVID-19 Asthma Surgical History Hx of colonoscopy (05/29/23) History of esophagogastroduodenoscopy (EGD) (05/29/23) Hx of tubal ligation Hx of oral surgery Family History Mother No problems noted. Father Heart attack Stroke Diabetes Heart problem Sister Hypertension Pre-diabetes Circulation problem Son No problems noted. Son No problems noted. Daughter No problems noted. 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 Reproductive History Menstrual Age of Menarche: 10 Review of Systems Const Denies weight gain and Denies weight loss ENT Reports no additional complaints, Denies dysphagia and Denies odynophagia Card Reports no additional complaints Resp Reports no additional complaints GI Denies abdominal pain, Denies belching, Denies melena, Denies bloating, Denies change in bowel habits, Denies dysphagia, Denies excessive flatus, Denies dyspepsia, Denies heartburn, Denies diarrhea, Denies loose stools, Denies nausea, Denies odynophagia and Denies vomiting Musc Reports no additional complaints Neuro Reports no additional complaints Psych Reports no additional complaints Endo Reports no additional complaints Physical Exam Vital Signs: Last Vital Signs Pulse 64 09/12/23 10:14 BP 128/70 09/12/23 10:14 Pulse Ox 98 09/12/23 10:14 Oxygen Delivery Method Room Air 09/12/23 10:14 BMI result Body Mass Index 42.2 Const General: healthy appearing and no acute distress Nutritional Appearance: obese Orientation/consciousness: patient oriented x3 Resp Effort & Inspection: normal respiratory effort, able to speak in complete sentences, no tracheal deviation and symmetric chest movement Auscultation: clear to auscultation bilaterally Cardio Rate: regular rate GI Inspection: Yes normal to inspection, No distended and Yes obesity Palpation (GI): Soft to palpation, not firm, nontender and No hepatosplenomegaly present Auscultation: normal bowel sounds General: Yes no CVA tenderness Back/Spine/Pelvis Back: no CVA tenderness Skin General skin exam: elasticity normal, turgor normal and dry skin Neuro General: patient oriented x3 Psych Appearance: grossly normal Mental Status: mental status grossly normal Assessment & Plan Assessment & Plan (1) Chronic abdominal pain: Code(s): R10.9 - Unspecified abdominal pain; G89.29 - Other chronic pain Category: Medical (2) Diverticulosis: Code(s): K57.90 - Diverticulosis of intestine, part unspecified, without perforation or abscess without bleeding Category: Medical (3) Tavarez's esophagus without dysplasia: Code(s): K22.70 - Tavarez's esophagus without dysplasia Category: Medical (4) GERD (gastroesophageal reflux disease): Code(s): K21.9 - Gastro-esophageal reflux disease without esophagitis Qualifiers: Esophagitis presence: esophagitis presence not specified Qualified Code(s): K21.9 - Gastro-esophageal reflux disease without esophagitis (5) Chronic idiopathic constipation: Code(s): K59.04 - Chronic idiopathic constipation (6) IBS (irritable bowel syndrome): Code(s): K58.9 - Irritable bowel syndrome without diarrhea Qualifiers: Irritable bowel syndrome type: without diarrhea Qualified Code(s): K58.9 - Irritable bowel syndrome without diarrhea (7) Tavarez's esophagus without dysplasia: Code(s): K22.70 - Tavarez's esophagus without dysplasia Plan Continue omeprazole. Avoid dietary triggers and late night snacking. Patient will try berberine and see if that will help her with cravings. Smaller meals and more often. Avoid dietary triggers and late night snacking. Staying u pright for minimum 3 hours after meals discussed with patient. Patient will follow-up in the office in 2 months, sooner on as needed basis. She is agreeable to this plan and verbalizes understanding of instructions. She was given the opportunity to ask questions and all questions answered. Thank you for allowing me to participate in her care A 2021 review of 18 studies that examined the effect of berberine on body weight and 23 that examined its effect on body mass index (BMI; a value based on weight and height that may help determine whether a person has a healthy weight) found significant decreases in both weight and BMI in people who took berberine.?(https://www.[facility].nih.gov/health/jxkkvgbek-bef-squwnh-sjvg-jpjj-eua- pyhc-ul-azaz) Medications: New omeprazole 40 mg PO DAILY 90 caps 3RF Coding Level of Care Code Est Pt Level 3 (21784) Diagnoses Chronic abdominal pain R10.9; G89.29 Diverticulosis K57.90 Tavraez's esophagus without dysplasia K22.70 Gastroesophageal reflux disease, unspecified whether esophagitis present K21.9 Esophagitis presence: esophagitis presence not specified Chronic idiopathic constipation K59.04 Irritable bowel syndrome without diarrhea K58.9 Irritable bowel syndrome type: without diarrhea Time Spent (min) 30 Comment 20 minutes spent with patient and additional 10 minutes spent reviewing her records
[2023-09-12 10:14] VITALS: BP 128/70; PULSE 64; O2SAT 98; BMI 42.2
== END 2023-09-12 10:37 | disposition home or self-care (01) ==
PROVIDERS: PCP Family Medicine; Visit Provider Nurse Practitioner Family
DX: R10.9 Unspecified abdominal pain (principal); G89.29 Other chronic pain; K57.90 Diverticulosis of intestine, part unspecified, without perforation or abscess without bleeding; K22.70 Barrett's esophagus without dysplasia; K21.9 Gastro-esophageal reflux disease without esophagitis; K59.04 Chronic idiopathic constipation; K58.9 Irritable bowel syndrome, unspecified
CPT/HCPCS: 99213

== ENCOUNTER → 2023-09-12 10:02 | Outpatient (BNVA) | payer MEDICAID, SELFPAY | PROVIDERS: PCP Family Medicine; Visit Provider Nurse Practitioner Family | DX: R10.9 Unspecified abdominal pain (principal); G89.29 Other chronic pain; K57.90 Diverticulosis of intestine, part unspecified, without perforation or abscess without bleeding; K22.70 Barrett's esophagus without dysplasia; K21.9 Gastro-esophageal reflux disease without esophagitis; K59.04 Chronic idiopathic constipation; K58.9 Irritable bowel syndrome, unspecified | CPT/HCPCS: 99212 ==

== ENCOUNTER 2023-12-02 11:07 | Emergency (ER) | payer MEDICAID, SELFPAY ==
[2023-12-02 11:11] VITALS: BP 130/64; PULSE 80; RESP 16; TEMP 36.8; O2SAT 98; BMI 42.0
--- NOTE | 2023-12-02 11:12 | ED_ITS ---
HPI - General Adult General Chief complaint: General Medical Stated complaint: Fatigue Time Seen by Provider: 12/02/23 13:06 Source: patient Mode of arrival: ambulatory Limitations: no limitations History of Present Illness ED Provider: Dr. Nicolle Sims HPI narrative: Patient comes to the emergency room complaining of generalized malaise, subjective fever , states that yesterday she had an asthma exacerbation but used her inhaler. Also, patient states what is bothering her the most is her eye, patient states that under the right eyelid, she has a painful rash that started yesterday Related Data Home Medications ?Medication ?Instructions ?Recorded ?Confirmed albuterol sulfate 2.5 mg/3 mL 2.5 mg inhalation Q6H PRN wheezing 09/12/23 (0.083 %) solution for nebulization budesonide-formoterol HFA 80 2 puff inhalation 09/12/23 mcg-4.5 mcg/actuation aerosol inhaler (Symbicort) Previous Rx's ?Medication ?Instructions ?Recorded albuterol sulfate 90 mcg/actuation 1 inh inhalation QID PRN shortness 03/26/20 aerosol inhaler of breath or wheezing #6.7 grams ondansetron 4 mg disintegrating 4 mg PO Q8H PRN nausea and 12/13/22 tablet vomiting #20 tabs omeprazole 40 mg capsule,delayed 40 mg PO DAILY #90 caps 09/12/23 release tramadol 50 mg tablet 50 mg PO BID PRN pain #6 tabs 12/02/23 valacyclovir 1 gram tablet 1,000 mg PO TID 7 days #21 tabs 12/02/23 Allergies Allergy/AdvReac Type Severity Reaction Status Date / Time guaifenesin [From MUCINEX] Allergy Mild HIVES Verified 12/02/23 11:13 aspirin [Aspirin] Allergy Unknown UNKNOWN Verified 12/02/23 11:13 penicillin V Allergy Unknown Hives Verified 12/02/23 11:13 Penicillins Allergy Unknown UNKNOWN Verified 12/02/23 11:13 poly-ureaurethane [Nuvail] Allergy Unknown Hives Verified 12/02/23 11:13 From Nubain Allergy Unknown UNKNOWN Uncoded 06/11/23 10:08 Nubain Allergy Unknown Hives Uncoded 06/11/23 10:08 Patient states she has no Allergy Unknown Hives Uncoded 06/11/23 10:08 know Review of Systems 2 Review of Systems: Constitutional : No Weight loss, complaining of subjective fever, chills, fatigue and generalized malaise ENT/Mouth : No Hearing loss, No Ear Pain, No Nasal Congestion, No Sinus Pain, No Hoarseness, No sore throat, No Rhinorrhea, No Swallowing Difficulty Eyes: Complaining of a painful rash under the right lower eyelid, No Swelling, No Redness, No Foreign Body, No Discharge, No Vision Changes Cardiovascular : No Chest Pain, No SOB, No Dyspnea on Exertion, No Orthopnea, No Edema, No Palpitations Respiratory : No Cough, No Sputum, No Wheezing, No Smoke Exposure, No Dyspnea Gastrointestinal : No Nausea, No Vomiting, No Diarrhea, No Constipation, No abdominal Pain, No Hematochezia, No Melena Genitourinary : no irregular bleeding, No Dysuria, No Urinary Frequency, No Hematuria, No Urinary Incontinence, No Urgency, No Flank Pain, No Urinary Flow Changes, No Hesitancy Musculoskeletal : No joint pain, No Myalgias, No Joint Swelling Skin : No Skin Lesions, No rash Neuro : No Weakness, No Numbness, No Paresthesias, No Loss of Consciousness, No Dizziness, No Headache Psych : No Anxiety/Panic, No Depression, No SI/HI/AH/VH, No Social Issues, Heme/Lymph: No Bruising, No Bleeding,No Lymphadenopathy Endocrine : No Polyuria, No Polydipsia, No Temperature Intolerance PMFSH Past Medical History Medical History Tavarez's esophagus without dysplasia Diverticulosis COVID-19 Asthma Surgical History Hx of colonoscopy (05/29/23) History of esophagogastroduodenoscopy (EGD) (05/29/23) Hx of tubal ligation Hx of oral surgery Family History Family History Mother No problems noted. Father Heart attack Stroke Diabetes Heart problem Sister Hypertension Pre-diabetes Circulation problem Son No problems noted. Son No problems noted. Daughter No problems noted. Daughter Anemia Social History Social History Alcohol intake: never Patient Tobacco Use Status: Never used Tobacco Advance Directives: No Advance Directives Information Provided: Yes Do you have a plan to hurt others: No Plan Current occupational status: employed Current occupation: rt hand [employer] Physical Exam ED Vital Signs: Vital Signs - 24 hr 12/02/23 11:11 Temperature 98.3 F Pulse Rate 80 Respiratory Rate 16 Blood Pressure 130/64 Pulse Oximetry 98 Oxygen Delivery Method Room Air BMI result Body Mass Index 42.0 Const Other: Appearance: Alert. Oriented X3. No acute distress. Eyes: Pupils equal, round and reactive to light. Patient has a vesicular painful rash under the right lower eyelid. Fluorescein stain the Wood's lamp do not show any dendrites ENT: Pharynx normal. Neck: Normal inspection. Neck supple. No lymph nodes noted. No crepitus CVS: Normal heart rate and rhythm. Pulses normal. Normal S1 and S2 Respiratory: No respiratory distress. Breath sounds normal. No Wheezing. No rales Abdomen: Soft and nontender. No rigidity. No distention. Skin: Skin warm and dry. Normal skin color. Normal skin turgor. See above, shingles rash under the left eye, no vesicular rash on the tip of the nose Extremities: No lower extremity edema. No Lacerations. No Rash Neuro: Oriented X 3. No motor deficit. No sensory deficit. Moving all extremities. No slurred speech. CN 2 through 12 grossly intact Psych: calm, cooperative, normal affect Course Course Course Narrative: This is an RME done by HANK Biggs: Additional HPI, ROS, PE not included below will be deferred to primary provider. 48 year old female presents w/ fatigue, malaise, myalgias, asthma , right eye swelling, vertigo X 2 days . Also a/c fevers. No nausea, vomiting, abd pain, cp, sob Plan- viral test Appearance: Alert.? Oriented X3.? No acute cardiopulmonary distress distress.? Head: Normocephalic, atraumatic, no step-offs or deformities CVS: Pulses normal.? Respiratory: No respiratory distress.? Skin: ? Normal skin color. Extremities: 5/5 strength to bilateral upper and lower extremities Neuro: Oriented X 3.? No motor deficit.? No sensory deficit. Ambulatory into triage no difficulty Medications Administered Discontinued Medications Generic Name Dose Route Start Last Admin Trade Name Freq PRN Reason Stop Dose Admin Fluorescein Sodium 1 strip 12/02/23 13:15 12/02/23 13:24 Fluorescein Sodium Strip EYE-RIGHT 12/02/23 13:16 1 strip ONCE ONE Administration Medical Decision Making Medical Decision Making [facility] Narrative: My interpretation of labs: Normal hematology, chemistry, LFTs and lipase, serology negative for influenza RSV and COVID. -patient's vitals stable -I discussed the physical exam with the patient, patient has shingles, rash under her right eye Differential Diagnosis Differential Diagnoses: The differential diagnosis associated with the presentation includes (Viral syndrome, shingles) Lab Data [facility] Lab Attestation statement: I reviewed the patient's lab results. 12/02/23 12:45 12/02/23 12:45 Labs: Lab Results 12/02/23 12/02/23 Range/Units 11:15 12:45 WBC 7.7 (4.8-10.8) X10*3/uL RBC 3.93 L (4.20-5.50) X10*6/uL Hgb 12.0 (12.0-16.0) g/dl Hct 35.8 L (37.0-47.0) % MCV 91.1 (80.0-98.0) fL MCH 30.5 (27.0-33.0) pg MCHC 33.5 (31.0-35.0) g/dl RDW 13.2 (11.0-16.0) % Plt Count 262 (160-400) X10*3/uL MPV 9.9 (9.4-12.3) fL Immature Gran % (Auto) 0.5 H (0.0-0.4) % Neut % (Auto) 52.5 (45-73) % Lymph % (Auto) 38.5 (20-40) % [place] % (Auto) 5.5 (2-11) % Eos % (Auto) 2.5 (0-4) % Baso % (Auto) 0.5 (0-2) % Lymph # (Auto) 3.0 (1.2-4.9) X10*3/uL [place] # (Auto) 0.4 (0.1-1.2) X10*3/uL Eos # (Auto) 0.2 (0.0-0.4) X10*3/uL Baso # (Auto) 0.0 (0.0-0.2) X10*3/uL Abs Immat Gran (auto) 0.04 H (0.00-0.03) X10*3/uL Absolute Neuts (auto) 4.0 (2.0-8.3) x10*3/uL Absolute Nucleated RBC 0.000 (0.0-0.012) X10*3/uL Nucleated RBC % (auto) 0.0 (0.0-0.2) /100WBC Sodium 141 (135-145) mmol/L Potassium 3.9 (3.3-5.1) mmol/L Chloride 108 (96-108) mmol/L Carbon Dioxide 26 (22-29) mmol/L Anion Gap 11 L (12-20) BUN 14 (9-16) mg/dL Creatinine 0.68 (0.5-1.4) mg/dL Estim Creat Clear Calc 120.6 Estimated GFR > 60 Random Glucose 97 (60-115) mg/dL Calcium 9.2 (8.4-10.2) mg/dL Total Bilirubin 0.2 (0.0-1.0) mg/dL AST 17 (5-31) U/L ALT 17 (0-31) U/L Alkaline Phosphatase 91 (39-117) U/L Total Protein 6.6 (6.5-8.0) g/dL Albumin 3.5 (3.5-5.0) g/dL Lipase 19 (8-78) U/L Influenza Type A (PCR) NEGATIVE (Negative) Influenza Type B (PCR) NEGATIVE (Negative) RSV RNA Qual (PCR) NEGATIVE (Negative) SARS-CoV-2 RNA (RT-PCR) NEGATIVE (Negative) Discharge Plan Discharge Clinical Impression: Swapna Patient Disposition: Home, Self-Care Instructions: Swapna (ED) Additional Instructions: Please follow-up with your primary care physician tomorrow. If you have any worsening or new symptoms, please return to the emergency room or call 911 Prescriptions: New valacyclovir 1 gram tablet 1,000 mg PO TID 7 Days Qty: 21 0RF tramadol 50 mg tablet 50 mg PO BID PRN (Reason: pain) Qty: 6 0RF No Action albuterol sulfate 90 mcg/actuation HFA aerosol inhaler 1 inh inhalation QID PRN (Reason: shortness of breath or wheezing) Qty: 6.7 0RF ondansetron 4 mg tablet,disintegrating 4 mg PO Q8H PRN (Reason: nausea and vomiting) Qty: 20 0RF albuterol sulfate 2.5 mg /3 mL (0.083 %) solution for nebulization 2.5 mg inhalation Q6H PRN (Reason: wheezing) budesonide-formoterol [Symbicort] 80-4.5 mcg/actuation HFA aerosol inhaler 2 puff inhalation omeprazole 40 mg capsule,delayed release(DR/EC) 40 mg PO DAILY Qty: 90 3RF Print Language: Wolof
[2023-12-02 12:02] LABS: Influenza A PCR NEGATIVE (Negative); Influenza B PCR NEGATIVE (Negative); Resp Syncy Virus RNA Qual PCR NEGATIVE (Negative); SARS COV2 PCR INHOUSE NEGATIVE (Negative)
[2023-12-02 12:48] LABS: MANUAL DIFF FLAG NO
[2023-12-02 12:50] LABS: Basophils Percent Auto 0.5 % (0-2); Eosinophils Absolute Auto 0.2 X10*3/uL (0.0-0.4); Eosinophils Percent Auto 2.5 % (0-4); Hematocrit 35.8 % (37.0-47.0); Imm Gran Abs Auto 0.04 X10*3/uL (0.00-0.03); Imm Gran Pct Auto 0.5 % (0.0-0.4); Lymphocytes Percent Auto 38.5 % (20-40); Mean Corpuscular HGB Conc 33.5 g/dl (31.0-35.0); Mean Corpuscular Hemoglobin 30.5 pg (27.0-33.0); Mean Corpuscular Volume 91.1 fL (80.0-98.0); Mean Platelet Volume 9.9 fL (9.4-12.3); Monocytes Absolute Auto 0.4 X10*3/uL (0.1-1.2); Monocytes Percent Auto 5.5 % (2-11); Neutrophils Percent Auto 52.5 % (45-73); Platelet Count 262 X10*3/uL (160-400); Red Blood Count 3.93 X10*6/uL (4.20-5.50); Red Cell Distribution Width 13.2 % (11.0-16.0); White Blood Count 7.7 X10*3/uL (4.8-10.8)
[2023-12-02 13:02] LABS: Alanine Aminotransferase 17 U/L (0-31); Albumin Level 3.5 g/dL (3.5-5.0); Alkaline Phosphatase 91 U/L (39-117); Anion Gap 11 (12-20); Aspartate Amino Transferase 17 U/L (5-31); Bilirubin Total 0.2 mg/dL (0.0-1.0); Blood Urea Nitrogen 14 mg/dL (9-16); Calcium 9.2 mg/dL (8.4-10.2); Carbon Dioxide 26 mmol/L (22-29); Chloride 108 mmol/L (96-108); Creatinine Clr Calc Pharmacy 120.6; Estimated Glomerular Filt Rate > 60; Glucose Random 97 mg/dL (60-115); Lipase 19 U/L (8-78); Potassium 3.9 mmol/L (3.3-5.1); Sodium 141 mmol/L (135-145); Total Protein 6.6 g/dL (6.5-8.0)
[2023-12-02] MEDS: Fluorescein Sodium STRIP 1 STRIP EYE-RIGHT (13:24)
[2023-12-02 13:33] VITALS: BP 131/58; BP 131/60; PULSE 56; PULSE 58
[2023-12-02 13:34] VITALS: BP 140/67; PULSE 62
[2023-12-02 14:22] VITALS: BP 140/67; PULSE 62; RESP 16; TEMP 36.8; O2SAT 98
== END 2023-12-02 14:31 | disposition home or self-care (01) ==
PROVIDERS: Physician Assistant; Emergency Provider Emergency Medicine; PCP Family Medicine
DX: B02.8 Zoster with other complications (principal); R53.83 Other fatigue; R50.9 Fever, unspecified; Z79.899 Other long term (current) drug therapy; Z03.818 Encounter for observation for suspected exposure to other biological agents ruled out
CPT/HCPCS: 0241U; 36415; 80053; 83690; 85025; 99282; 99283

== ENCOUNTER 2024-11-17 08:54 | Outpatient (REF) | payer MEDICAID, SELFPAY ==
--- OUTSIDE RECORDS SUMMARY | 2024-11-17 09:17 | XMS_ITS | Encounter Summary ---
Author Organization [employer] Address [address] [facility] [address] [place] [address] Care Team Providers Care Orthodontic Technician Assistant Name Role Phone Shae Layne MD Primary Care Provider [phone]- [phone] Encounter Details Date Type Department Care Team (Late st Contact Info) Description 01/06/2023 Abstract [facility] [address], [place] [phone] Shae Layne MD [address] [place], [place] [phone] Social History Tobacco Use Types Packs/Day Years Used Date Smoking Tobacco: Never Smokeless Tobacco: Never Depression Answer Date Recorded Patient Health Questionnaire-9 Score 0 08/08/2022 Depression Answer Date Recorded Patient Health Questionnaire-2 Score 0 08/08/2022 Comments Unknown Sex and Gender Information Value Date Recorded Sex Assigned at Female 02/04/2022 10:20 AM EDT Legal Sex Female 10:20 AM EDT Gender Identity Female 02/04/2022 10:20 AM EDT Sexual Orientation Straight 02/04/2022 10 :20 AM EDT documented as of this encounter Plan of Treatment Not on file documented as of this encounter Visit Diagnoses Not on filedocumented in this encounter Additional Health Concerns Assessment Noted Time PHQ-9 Depression Total Score: 0 08/09/19 23 3:57 PM EDT documented as of this encounter Care Teams Orthodontic Technician Assistant Relationship Specialty Start Date End Date Shae Layne MD [address] [place], [place] [phone] PCP - General Family Medicine 04/07/18 documented as of this encounter
[2024-11-17 11:20] LABS: MANUAL DIFF FLAG NO
[2024-11-17 11:32] LABS: Hematocrit 38.7 % (37.0-47.0); Hemoglobin 12.6 g/dl (12.0-16.0); Imm Gran Abs Auto 0.04 X10*3/uL (0.00-0.03); Imm Gran Pct Auto 0.6 % (0.0-0.4); Lymphocytes Absolute Auto 2.8 X10*3/uL (1.2-4.9); Mean Corpuscular HGB Conc 32.6 g/dl (31.0-35.0); Mean Corpuscular Hemoglobin 30.4 pg (27.0-33.0); Mean Corpuscular Volume 93.5 fL (80.0-98.0); NRBC Abs Auto 0.000 X10*3/uL (0.0-0.012); NRBC Pct Auto 0.0 /100WBC (0.0-0.2); Platelet Count 277 X10*3/uL (160-400); Red Blood Count 4.14 X10*6/uL (4.20-5.50); White Blood Count 6.7 X10*3/uL (4.8-10.8)
[2024-11-17 12:08] LABS: Alanine Aminotransferase 27 U/L (0-31); Albumin Level 3.8 g/dL (3.5-5.0); Alkaline Phosphatase 84 U/L (39-117); Anion Gap 10 (12-20); Aspartate Amino Transferase 32 U/L (5-31); Blood Urea Nitrogen 17 mg/dL (9-16); Calcium 8.7 mg/dL (8.4-10.2); Carbon Dioxide 28 mmol/L (22-29); Chloride 107 mmol/L (96-108); Cholesterol 269 mg/dL (<200); Estimated Glomerular Filt Rate > 60; HDL Cholesterol 54 mg/dL (>40); Iron 76 mcg/dL (30-160); Percent Iron Saturation 23 % (15-50); Potassium 4.6 mmol/L (3.3-5.1); Sodium 140 mmol/L (135-145); Total Iron Binding Capacity 324 mcg/dL (228-428); Total Protein 6.6 g/dL (6.5-8.0); Triglycerides 197 mg/dL (<150); Unsaturated Iron Binding 248 ug/dL
[2024-11-17 12:10] LABS: Ferritin 21 ng/mL (10-250)
[2024-11-17 12:25] LABS: Folate 7.3 ng/mL (> or = 4.0); Vitamin B12 640 pg/mL (200-900)
== END 2024-11-17 08:55 | disposition home or self-care (01) ==
LOC: HO.HHCL 08:54
PROVIDERS: PCP Family Medicine; Visit Provider Family Medicine
DX: N20.0 Calculus of kidney (principal); Z13.220 Encounter for screening for lipoid disorders; E61.1 Iron deficiency
CPT/HCPCS: 36415; 80048; 80061; 80076; 82607; 82728; 82746; 83540; 84443; 85025

== ENCOUNTER 2024-12-15 09:11 | Outpatient (REF) | payer MEDICAID, SELFPAY ==
--- OUTSIDE RECORDS SUMMARY | 2024-12-14 17:20 | XMS_ITS | Encounter Summary ---
Author Organization [employer] Address [address] [facility] [address] [place] [address] Care Team Providers Care Crisis Counselor Name Role Phone Shae Layne MD Primary Care Provider +1- [phone] Encounter Details Date Type Department Care Team (Late st Contact Info) Description 12/14/2024 5:20 PM EDT Office Visit [facility] [address] [place], [place] [phone] Lindsay Nguyen CNP [address] [place], [place] [phone] Mild intermittent asthma with exacerbation (Primary Dx); Bilateral posterior neck pain; Chest pain, unspecified type Social History Tobacco Use Types Packs/Day Years Used Date Smoking Tobacco: Never Smokeless Tobacco: Never Depression Answer Date Recorded Patient Health Questionnaire-9 Score 7 10/27/2024 Patient Health Questionnaire-9 Score 7 10/27/2024 Last PHQ-9: Questionnaire Data Not on file 0 10/27/2024 Housing Stability Answer Date Recorded What is your housing situation today? I have renae lind 10/29/[address] you li ve. Do you have problems with any of the following? None of the above 10/29/2023 Food Insecurity Answer Date Recorded Within the past 12 months, y ou worried that your food would run out before you got money to buy more: Never True 10/21/2023 Within the past 12 months,th e food you bought just didn't last and you didn't have enough money to get more: Never True Transportation Answer Date Recorded In the past 12 months, has l ack of transportation kept you from medical appts, meetings, work or from getting things needed for daily living? No 10/21/2023 Utilities Answer Date Recorded In the past 12 months, has t he electric, gas, oil or water company threatened to shut off services in your home? No 10/21/2023 Depression Answer Date Recorded Patient Health Questionnaire-2 Score 0 10/27/2024 Internet Access Answer Date Recorded Internet Access Q1 No 11/02/2024 Internet Access Q2 Not on file 11/02/2024 Comments Unknown Sex and Gender Information Value Date Recorded Sex Assigned at Female 02/04/2022 10:20 AM EDT Legal Sex Female 10:20 AM EDT Gender Identity Female 02/04/2022 10:20 AM EDT Sexual Orientation Straight 02/04/2022 10 :20 AM EDT documented as of this encounter Last Filed Vital Signs Vital Sign Reading Time Taken Comments Blood Pressure 148/80 12/14/2024 5:20 PM EDT Pulse 72 12/14/2024 5:20 PM EDT Temperature 36.8 C (98.2 F) 12/14/2024 5:20 PM EDT Respiratory Rate 16 12/14/2024 5:20 PM EDT Oxygen Saturation 100% 12/14/2024 5:20 PM EDT Inhaled Oxygen Concentration - - Weight 115 kg (253 lb) 12/14/2024 5:20 PM EDT Height 172.7 cm (5' 8 ) 12/14/2024 5:20 PM EDT Body Mass Index 38.47 12/14/2024 5:20 PM EDT documented in this encounter Progress Notes * Lindsay Nguyen, CHANTELLE - 12/14/2024 5:20 PM EDT Subjective Patient ID: Anahi Archer is a 49 y.o. female who presents at [facility] for sick visit. HPI - Chest pain for 4 days, described as electric and pinching, interfering with sleep, never experienced chest pain before - Dry throat - Shortness of breath associated with chest pain - History of asthma, uses inhalers as needed, father also has asthma - No fever or chills - Pain radiating from neck, through arm, down to knee and back - Numbness and tingling in arm, pain radiates to fingers, described as electric shock sensation - History of sciatica, able to tolerate sciatica pain with home exercises - Previous Toradol injections provided pain relief, last injection was followed by a muscle relaxant pill (methocarbamol) - Tried Aleve, ibuprofen, Tylenol at home for pain, no relief - Tried muscle relaxants prescribed by chiropractor, did not help - Tried gabapentin 300 mg for nerve pain, did not help - Previous prednisone use caused weight gain, does not want to take prednisone - Surgeon recommended surgery for back and sciatica, does not want surgery - Difficulty sleeping for 3 nights due to pain Review of Systems see hpi Objective Vitals: 12/14/24 1720 BP: (!) 148/80 Pulse: 72 Resp: 16 Temp: 98.2 ??F (36.8 ??C) SpO2: 100% Physical Exam Constitutional: Appearance: Normal appearance. She is normal weight. Neck: Comments: Tenderness over R cervical spine radiating to right shoulder +spasms present Cardiovascular: Rate and Rhythm: Normal rate and regular rhythm. Pulses: Normal pulses. Heart sounds: Normal heart sounds. No murmur heard. No friction rub. No gallop. Pulmonary: Effort: Pulmonary effort is normal. No respiratory distress. Breath sounds: Wheezing present. No rales. Neurological: General: No focal deficit present. Mental Status: She is alert and oriented to person, place, and time. Psychiatric: Mood and Affect: Mood normal. Behavior: Behavior normal. Thought Content: Thought content normal. Judgment: Judgment normal. Assessment/Plan Problem List Items Addressed This Visit None Visit Diagnoses Mild intermittent asthma with exacerbation - Primary Relevant Medications ipratropium-albuterol (Duo-Neb) 0.5-2.5 mg/3 mL nebulizer solution 3 mg (Start on 12/14/2024 5:45 PM) ketorolac (Toradol) injection 30 mg (Start on 12/14/2024 5:45 PM) See below Bilateral posterior neck pain Relevant Medications methocarbamol (Robaxin) 750 MG tablet ketorolac (Toradol) injection 30 mg (Start on 12/14/2024 5:45 PM) Pt reports she has exhausted conservative therapy, she declines PT, she declines wanting surgical intervention Will provide toradol in office injection today for relief I also refilled robaxin for prn use Advised pt of anticipated side effects of this medication. Chest pain, unspecified type Relevant Orders ECG 12 lead (Completed) HR 73, NSR, No ST segmental changes, no QR interval changes, normal ECG Based on HPI and PE, chest pain likely 2/2 asthma exacerbation, cardiac exam normal today, pulm exam revealed wheezing. Will have Duoneb performed in office today, s/p neb tx pt wheezing had resolved Will send albuterol prn for SOB and wheezing Considered prescribing prednisone burst however pt declined because she does not want to take prednisone or other steroids due to weight concerns. I will order CXR as pt reports she has not experienced CP with prior asthma exacerbations, pt will get tomorrow. ED precautions in place. documented in this encounter Plan of Treatment Not on file documented as of this encounter Procedures Procedure Name Priority Date/Time Associated Diagnosis Comments XR CHEST 2 VIEWS Routine 12/15/2024 9:27 AM EDT Chest pain, unspecified type ECG 12-LEAD Routine 12/14/2024 5:42 PM EDT Chest pain, unspecified type documented in this encounter Results * XR Chest 2 Views (12/15/2024 9:27 AM EDT) Anatomical Region Laterality Modality Chest Radiographic Carito ging 12/15/2024 9:27 AM EDT Narrative 12/15/2024 9:55 AM EDT [address] [address] XRay Report Signed Patient: Anahi Rodriguez MR#: [id number] : 1975 Acct:[id number] Age/Sex: 49 / F ADM Date: 12/15/24 Loc: HO.HHCX Attending Dr: Lindsay Nguyen ICE CREAM DIPPER Ordering Physician: Lindsay Nguyen NP Date of Service: 12/15/24 Procedure(s): XR chest 2V Accession Number(s): [id number] cc: Shae Layne MD; Lindsay Nguyen NP Reason for Exam: persistent chest pain despite in office asthma tx with duoneb, neg EKG EXAMINATION: XR CHEST CLINICAL INFORMATION: persistent chest pain despite in office asthma tx with duoneb, neg EKG COMPARISON: March 06, 2022 TECHNIQUE: PA and lateral views FINDINGS: No consolidation, pleural effusion or pneumothorax. Cardiomediastinal silhouette size is normal. Osseous structures are intact. Patient's large body habitus/obesity.. XR/XR chest 2V IMPRESSION: No acute airspace disease. Stable chest. Electronically signed by: Chun Jain MD 12/15/2024 09:52 AM EDT RP Dictated By: Chun Vasquez MD Signed By: <Electronically signed by Chun Junior MD in OV> 12/15/24951 DD/ 6 TD/TT: 12/15/24926 Aoc Director Combat Plans Officer: Procedure Note Donotuseinterpreter, Image - 12/15/[address] [address] XRay Report Signed Patient: Anahi RodriguezMR#: [id number] : 1975Acct:[id number] Age/Sex: 49 / FADM Date: 12/15/24 Loc: HO.HHCX Attending Dr: Lindsay Nguyen ICE CREAM DIPPER Ordering Physician: Lindsay Nguyen NP Date of Service: 12/15/24 Procedure(s): XR chest 2V Accession Number(s): [id number] cc: Shae Layne MD; Lindsay Nguyen NP Reason for Exam: persistent chest pain despite in office asthma tx withduoneb, neg EKG EXAMINATION: XR CHEST CLINICAL INFORMATION: persistent chest pain despite in office asthma tx with duoneb, neg EKG COMPARISON: March 06, 2022 TECHNIQUE: PA and lateral views FINDINGS: No consolidation, pleural effusion or pneumothorax. Cardiomediastinal silhouette size is normal. Osseous structures are intact. Patient's large body habitus/obesity.. XR/XR chest 2V IMPRESSION: No acute airspace disease. Stable chest. Electronically signed by: Chun Jain MD 12/15/2024 09:52 AM EDT RP Dictated By: Chun Vasquez MD Signed By: <Electronically signed by Chun Junior MDin OV> 12/15/24951 DD/ 6 TD/TT: 12/15/24926 Aoc Director Combat Plans Officer: Result [facility] IMG XR PROCEDURES Final R esult * ECG 12 lead (12/14/2024 5:42 PM EDT) Lindsay Strange CNP - 12/14/2024 5:42 PM EDT HR 73, NSR, No ST segmental changes, no QR interval changes, normal ECG [facility] ECG ORDERABLES Final Res ult documented in this encounter Visit Diagnoses Diagnosis Mild intermittent asthma with exacerbation- Primary Unspecified asthma, with exacerbation Bilateral posterior neck pain Chest pain, unspecified type documented in this encounter Administered Medications Inactive Administered Medications - up to 3 most recent administrations Medication Order MAR Action Action Date Dose Rate Site ipratropium-albuterol (Duo-Neb) 0.5-2.5 mg/3 mL nebulizer solution 3 mg 3 mg, Nebulization, Once, On Fri12/14/24 at 1745, For 1 doseIndications:Mild intermittent asthma with exacerbation Given 12/14/2024 5:45 PM EDT 3 mg ketorolac (Toradol) injection 30 mg 30 mg, Intramuscular, Once, On Fri12/14/24 at 1745, For 1 doseIndications:Bilateral posterior neck pain Given 12/14/2024 5:45 PM EDT 30 mg Left Deltoid documented in this encounter Additional Health Concerns Assessment Noted Time PHQ-9 Depression Total Score: 7 10/28/19 25 2:32 PM EDT documented as of this encounter Care Teams Crisis Counselor Relationship Specialty Start Date End Date Shae Layne MD [address] [place] [address] PCP - General Family Medicine 04/07/18 documented as of this encounter
--- NOTE | ~2024-12-15 | XR_ITS ---
EXAMINATION: XR CHEST CLINICAL INFORMATION: persistent chest pain despite in office asthma tx with duoneb, neg EKG COMPARISON: March 06, 2022 TECHNIQUE: PA and lateral views FINDINGS: No consolidation, pleural effusion or pneumothorax. Cardiomediastinal silhouette size is normal. Osseous structures are intact. Patient's large body habitus/obesity.. XR/XR chest 2V IMPRESSION: No acute airspace disease. Stable chest. Electronically signed by: Chun Jain MD 12/15/2024 09:52 AM EDT
--- OUTSIDE RECORDS SUMMARY | 2024-12-15 10:53 | XMS_ITS | Encounter Summary ---
Author Organization [employer] Address [address] [facility] 7[address] [place] [address] Care Team Providers Care Tankroom Tender Name Role Phone Shae Layne MD Primary Care Provider +1- [phone] Encounter Details Date Type Department Care Team (Late st Contact Info) Description 12/15/2024 Results Follow-Up [facility] [address] [place] [address] Lindsay Nguyen, FASHION PHOTOGRAPHER [address] [place] [address] XR Chest 2 Views Social History Tobacco Use Types Packs/Day Years [...] AM EDT documented as of this encounter Miscellaneous Notes * Result Encounter Note - Lindsay Nguyen CNP - 12/15/2024 10:48 AM EDT Pt of Dr. Layne seen in [facility] last night, please call for status check and let her know her CXR was normal. Thanks! Lindsay documented in this encounter Plan of Treatment Not on file documented as of this encounter Visit Diagnoses Not on filedocumented in this encounter Additional Health Concerns Assessment Noted Time PHQ-9 Depression Total Score: 7 10/28/19 25 2:32 PM EDT documented as of this encounter Care Teams Tankroom Tender Relationship Specialty Start Date End Date Shae Layne MD [address] [place] [address] PCP - General Family Medicine 04/07/18 documented as of this encounter
--- OUTSIDE RECORDS SUMMARY | 2024-12-15 10:53 | XMS_ITS | Clinical Summary ---
Author Organization [employer] Address [address] [facility] [address] [place] [address] Care Team Providers Care Web Consultant Name Role Phone Shae Layne MD Primary Care Provider [phone] Allergies Active Allergy Reactions Criticality Noted Date Comments Aspirin Unknown Guaifenesin Hives Low 05/29/2023 Nalbuphine 10/21/2022 Penicillins Unknown Medications sucralfate (Carafate) 1 g tabletIndicatio ns:Irritable bowel syndrome, unspecified type Take 1 g by mouth at bedtime. 02/08/20 23 Active senna (Senokot) 8.6 MG tabletIndicatio ns:Irritable bowel syndrome, unspecified type 12/14/19 23 Active Citrucel 500 MG tabletIndicatio ns:Gastroesopha geal reflux disease, unspecified whether esophagitis present TAKE 1 TABLET BY MOUTH DAILY WITH FULL GLASS OF WATER 08/12/19 24 Active omeprazole OTC (PriLOSEC OTC) 20 MG EC tabletIndicatio ns:Gastroesopha geal reflux disease, unspecified whether esophagitis present Take 20 mg by mouth before breakfast. Do not crush, chew, or split. Per GI, Active naltrexone-buPR OPion ER (Contrave) 8-90 MG ER tabletIndicatio ns:Severe obesity (CMS/HCC) Take 1 tablet qam days 1-7, then 1 tab po bid days 8-14, then 2 tabs in am and one tab in PM days 15-22, then 2 tabs po bid 120 tablet 3 10/28/19 25 Active atorvastatin (Lipitor) 20 MG tabletIndicatio ns:Dyslipidemia Take 1 tablet (20 mg) by mouth Once per day. 30 tablet 11 11/18/19 25 026 Active methocarbamol (Robaxin) 750 MG tabletIndicatio ns:Bilateral posterior neck pain Take 1 tablet (750 mg) by mouth if needed in the morning, at noon, and at bedtime for muscle spasms for up to 10 days. 30 tablet 12/15/19 25 025 Active albuterol 108 (90 Base) MCG/ACT inhalerIndicati ons:Mild intermittent asthma with exacerbation Inhale 2 puffs every 6 (six) hours if needed for wheezing or shortness of breath. 18 g 3 12/15/19 25 025 Active methocarbamol (Robaxin) 750 MG tabletIndicatio ns:Bilateral posterior neck pain Take 1 tablet (750 mg) by mouth if needed in the morning, at noon, and at bedtime for muscle spasms for up to 10 days. 30 tablet 08/04/19 25 025 Discontinued(Re order (will not trigger notification to Pharmacy)) Hospital, Clinic, or Other Facility Administered Medication Ordered Dose Route Frequency Start Date End Date Status ipratropium-albutero l (Duo-Neb) 0.5-2.5 mg/3 mL nebulizer solution 3 mgIndications:Mild intermittent asthma with exacerbation 3 mg NEBULIZATION Once 12/14/2024 12/14/2024 Ended ketorolac (Toradol) injection 30 mgIndications:Bilate ral posterior neck pain 30 mg IM Once 12/14/2024 12/14/2024 Ended Active Problems Problem Noted Date Diagnosed Date Neck pain 08/09/2024 Overview (08/09/2024): C-spine MRI Result from [facility] by [facility] on 03/21/2022: Impression: Multilevel degenerative changes; severe left neural foraminal narrowing at C5-6, which may affect the left C6 nerve root exit. Muscle spasm 06/22/2024 Chronic intractable headache 06/22/2024 Assessment & Plan (08/21/2024 11:04 AM EDT): Consitent with ohvonda strain and tension Trial physical therapy, Ketoralac administered in clinic today for persistent pain Physical exam 10/29/2023 Skin tag 10/29/2023 Overview (10/29/2023): -referred to Dermatology for removal Assessment & Plan (10/29/2023 4:26 PM EDT): -referred to Dermatology for removal Anxiety and depression 10/29/2023 Overview (10/29/2023): -positive screening -declines suicidial or homacidial ideation -declines any intervention Assessment & Plan (10/29/2023 4:28 PM EDT): -positive screening -declines suicidial or homacidial ideation -declines any intervention Tavarez's esophagus without dysplasia 09/13/2023 Overview (09/13/2023): -seen by [facility] on 09/12/23 -omeprazole increased to 40mg daily by GI 09/12/23 Assessment & Plan (10/29/2023 4:31 PM EDT): -seen by [facility] GastroenterRoopa ko [employer] OPERATOR-BC on 09/12/23 -omeprazole increased to 40mg daily by GI 09/12/23 HLD (hyperlipidemia) 06/16/2023 Class 2 obesity 05/12/2023 05/12/2023 Other specified health status 11/13/2022 Overview (10/27/2024): -next comprehensive annual evaluation due after 10/27/25 -eye care facilitated by [facility] in [facility], last seen 04/29/16. -dental home is [facility] -health care proxy filed 10/29/23 Assessment & Plan (10/27/2024 4:27 PM EDT): -next comprehensive annual evaluation due after 10/27/25 -eye care facilitated by [facility] in [facility], last seen 04/29/16. -dental home is [facility] -health care proxy filed 10/29/23 Assessment & Plan (10/29/2023 4:14 PM EDT): -next physical exam due after 11/15/2023 -eye care facilitated by [facility] in [facility], last seen 04/29/16. -dental home is [facility] -health care proxy filed 10/29/23 Assessment & Plan (11/14/2022 10:16 AM EDT): -next physical exam due after11/15/2023 -eye care facilitated by [facility] in [facility], last seen 04/29/16. -dental home is Other chest pain 08/08/2022 Chronic midline low back pain with right-sided s ciatica 08/08/2022 Overview (05/19/2023): Pt reports injections for back pain were not working. She was sent to Dr Collier at [facility] on 10/21/2022 and was told to lose 30lbs first then get surgery. She has lost 10lbs. We tried semaglutide covered so she can lose weight for surgery but it was denied. -she is taking Ozempic 0.75 mg that her sister has been sending from a hospital pharmacy form [place]. She is not experiencing any side effects - She understands the risks of taking medication not prescribes by us -she will be getting a date for surgery soon Assessment & Plan (10/29/2023 4:32 PM EDT): Pt reports injections for back pain were not working. She was sent to Dr Collier at [facility] on 10/21/2022 and was told to lose 30lbs first then get surgery. She has lost 10lbs. We tried semaglutide covered so she can lose weight for surgery but it was denied. -she is taking Ozempic 0.75 mg that her sister has been sending from a hospital pharmacy form [place]. She is not experiencing any side effects - She understands the risks of taking medication not prescribes by us -she will be getting a date for surgery soon Assessment & Plan (05/19/2023 10:48 AM EST): Pt reports injections for back pain were not working. She was sent to Dr Collier at [facility] on 10/21/2022 and was told to lose 30lbs first then get surgery. She has lost 10lbs. We tried semaglutide covered so she can lose weight for surgery but it was denied. -she is taking Ozempic 0.75 mg that her sister has been sending from a hospital pharmacy form [place]. She is not experiencing any side effects - She understands the risks of taking medication not prescribes by us -she will be getting a date for surgery soon Assessment & Plan (11/14/2022 11:51 AM EDT): Pt reports injections for back pain were not working. She was sent to Dr Collier at [facility] on 10/21/2022 and was told to lose 30lbs first then get surgery. She has lost 10lbs. We are trying to get semaglutide covered so she can lose weight for surgery. Severe obesity 04/12/2022 Overview (10/27/2024): Baseline weight: 246 lbs -given BMI >30kg/m2 or >27kg/m2 with one or more weight related comorbidities pt is a candidate for glucagon-like peptide-1s (GLP-1) to assist with weight loss -pt has attempted > 3 months of dietary changes and increased physical activity without significant reduction in weight -patient counseled this medication is to be used in combination with reduced calorie diet and increased physical activity -Contraindication to phentermine: osteoarthritis of the knees. -Reviewed w/ pt side effects of GLP1 and how to mitigate incl eating small portions and do not eat through sensation of fullness. No personal or family h/o papillary thyroid cancer. No personal h/o pancreatitis. Does/does not have retinopathy. Refrigerate but do not freeze. -For naltrexone-buPROPion ER (Contrave) 8-90 MG ER tablet, start 10/27/24 Have to lose 30lbs to get back surgery tried Wegoskylar from [facility] and was able to lose 10lbs but she can not afford it anymore. We are going to try semaglutide as she needs to lose 30lbs prior to surgery. - She understands the risks of taking medication not prescribes by us -she will be getting a date for surgery soon -did not tolerate Ozempic due to GI upset, needs to loose weight for surgery -will trial Contrave, insurance did not cover the first time. Will try again 10/27/24 Assessment & Plan (10/27/2024 4:27 PM EDT): Baseline weight: 246 lbs -given BMI >30kg/m2 or >27kg/m2 with one or more weight related comorbidities pt is a candidate for glucagon-like peptide-1s (GLP-1) to assist with weight loss -pt has attempted > 3 months of dietary changes and increased physical activity without significant reduction in weight -patient counseled this medication is to be used in combination with reduced calorie diet and increased physical activity -Contraindication to phentermine: osteoarthritis of the knees. -Reviewed w/ pt side effects of GLP1 and how to mitigate incl eating small portions and do not eat through sensation of fullness. No personal or family h/o papillary thyroid cancer. No personal h/o pancreatitis. Does/does not have retinopathy. Refrigerate but do not freeze. -For naltrexone-buPROPion ER (Contrave) 8-90 MG ER tablet, start 10/27/24 Have to lose 30lbs to get back surgery tried Kayla from [facility] and was able to lose 10lbs but she can not afford it anymore. We are going to try semaglutide as she needs to lose 30lbs prior to surgery. - She understands the risks of taking medication not prescribes by us -she will be getting a date for surgery soon -did not tolerate Ozempic due to GI upset, needs to loose weight for surgery -will trial Contrave, insurance did not cover the first time. Will try again 10/27/24 Assessment & Plan (10/29/2023 4:23 PM EDT): Have to lose 30lbs to get back surgery tried Juanvaleryskylar from [facility] and was able to lose 10lbs but she can not afford it anymore. We are going to try semaglutide as she needs to lose 30lbs prior to surgery. -she is taking Ozempic 0.75 mg that her sister has been sending from a hospital pharmacy form [place]. She is not experiencing any side effects - She understands the risks of taking medication not prescribes by us -she will be getting a date for surgery soon -did not tolerate Ozempic due to GI upset, needs to loose weight for surgery -will trial Contrave Assessment & Plan (05/19/2023 10:51 AM EST): Have to lose 30lbs to get back surgery tried Kayla from [facility] and was able to lose 10lbs but she can not afford it anymore. We are going to try semaglutide as she needs to lose 30lbs prior to surgery. -She is taking Ozempic 0.75 mg that her sister has been sending from a hospital pharmacy form [place]. She is not experiencing any side effects -She understands the risks of taking medication not prescribes by us -She will be getting a date for surgery soon Assessment & Plan (11/14/2022 11:51 AM EDT): Have to lose 30lbs to get back surgery tried Kayla from [facility] and was able to lose 10lbs but she can not afford it anymore. We are going to try semaglutide as she needs to lose 30lbs prior to surgery. Colon cancer screening 04/12/2022 Overview (10/27/2024): -seen by Roopa SAMUEL 02/07/23 -colonoscopy done 05/29/23 Assessment & Plan (10/29/2023 4:33 PM EDT): -seen by Roopa SAMUEL 02/07/23 -colonoscopy scheduled 05/29/23 Assessment & Plan (05/19/2023 10:43 AM EST): -seen by Roopa FELICIANO 02/07/23 -colonoscopy scheduled 05/29/23 Assessment & Plan (11/14/2022 9:04 AM EDT): Referral done 08/08/2022. Assessment & Plan (08/08/2022 4:14 PM EDT): Referral done 08/08/2022. Vitamin D deficiency 04/12/2022 Iron deficiency 04/12/2022 Overview (10/27/2024): Lab Results Component Value Date HGB 12.0 12/02/2023 HGB 11.9 09/10/2022 HGB 11.3 (L) 08/17/2021 HEMATOCRIT 36.9 09/10/2022 HEMATOCRIT 35.8 08/17/2021 Assessment & Plan (10/27/2024 4:27 PM EDT): Lab Results Component Value Date HGB 12.0 12/02/2023 HGB 11.9 09/10/2022 HGB 11.3 (L) 08/17/2021 HEMATOCRIT 36.9 09/10/2022 HEMATOCRIT 35.8 08/17/2021 -ordered repeat 10/27/24 Orders: CBC auto differential; Future Ferritin; Future TSH with Reflex to Free T4; Future Iron And Total Iron Binding Capacity; Future Vitamin B12 (Cobalamin) and Folate Panel, Serum; Future Assessment & Plan (10/29/2023 4:29 PM EDT): Lab Results Component Value Date HGB 11.9 09/10/2022 HGB 11.3 (L) 08/17/2021 HEMATOCRIT 36.9 09/10/2022 HEMATOCRIT 35.8 08/17/2021 Assessment & Plan (11/14/2022 9:04 AM EDT): -No anemia 05/24/2020. -Will check Iron Studies. Assessment & Plan (08/08/2022 4:17 PM EDT): -No anemia 05/24/2020. -Will check Iron Studies. GERD (gastroesophageal reflux disease) 3 Overview (05/19/2023): Seen by Roopa Mayo [facility] 02/07/23. Endoscopy to rule out gastritis, esophagitis, Tavarez's, duodenitis, gastric or peptic ulcers was irdered. H pylori was negative by breath test this, will confirm with biopsy. Assessment & Plan (10/29/2023 4:31 PM EDT): Seen by Roopa Mayo [facility]- 02/07/23. Endoscopy to rule out gastritis, esophagitis, Tavarez's, duodenitis, gastric or peptic ulcers was irdered. H pylori was negative by breath test this, will confirm with biopsy. Mild intermittent asthma 01/06/2017 Overview (10/27/2024): Well-controlled. Followed by pulmonology, last seen 10/2022 Assessment & Plan (10/27/2024 4:27 PM EDT): Well-controlled. Followed by pulmonology, last seen 10/2022 Assessment & Plan (10/29/2023 4:32 PM EDT): Followed by pulmonology, last seen 10/2022 Assessment & Plan (05/19/2023 10:54 AM EST): Followed by pulmonology, last seen 10/2022 Atypical glandular cells on cervical Pap smear 1 Overview (05/19/2023): -pap 09/16/2013 ASCUS, HPV- with Dr. Dobson -pap 11/2021 NILM, HPV - with Dr. Dobson -routine pelvic exam, not testing indicated 02/[address] Dobson Assessment & Plan (11/14/2022 9:03 AM EDT): -pap 09/16/2013 ASCUS, HPV- with Dr. Dobson -pap 11/2021 NILM, HPV - with Dr. Dobson Assessment & Plan (04/12/2022 9:06 AM EST): -pap 09/16/2013 ASCUS, HPV- with Dr. Dobson -pap 11/2021 NILM, HPV - with Dr. Dobson Chronic abdominal pain 03/16/2012 Overview (05/19/2023): -Followed by GI last 02/2023 -Dx with epigastric pain and chronic constipation -Celiac panel had positive antigliadin iga was positive at 74, antiglidin igg was negative at 19 the rest of the ciliac panel was negative. -She has been referred to GI multiple times with poor follow through but is now back in care. Dyslipidemia 03/16/2012 Overview (11/17/2024): Lab Results Component Value Date CHOL 269 (H) 11/17/2024 TRIG 197 (H) 11/17/2024 TRIG 142 09/10/2022 HDL 54 11/17/2024 LDLCHOLCAL 176 (H) 11/17/2024 -continue lifestyle modification -10/29/23 labs ordered -atorvastatin 20mg started 11/17/24 Assessment & Plan (10/27/2024 4:27 PM EDT): Lab Results Component Value Date TRIG 142 09/10/2022 -continue lifestyle modification -10/29/23 labs ordered -labs ordered 10/27/24 Assessment & Plan (10/29/2023 4:16 PM EDT): Lab Results Component Value Date TRIG 142 09/10/2022 -continue lifestyle modification -10/29/23 labs ordered Assessment & Plan (11/14/2022 9:04 AM EDT): Lab Results Component Value Date CHOLESTEROL 206 (H) 09/10/2022 LDLCHOL 123 (H) 09/10/2022 LDLCHOL 124 (H) 08/17/2021 LDLCHOL 144 (H) 10/26/2019 LDLCHOL 144 (H) 10/26/2019 LDLCHOL 144 (H) 10/26/2019 LDLCHOL 144 (H) 10/26/2019 TRIG 142 09/10/2022 HDLCHOL 58 09/10/2022 CHOLHDLRAT 3.6 09/10/2022 -continue lifestyle modifications Kidney stone 03/16/2012 Assessment & Plan (10/27/2024 4:27 PM EDT): Orders: Basic Metabolic Panel; Future Resolved Problems Problem Noted Date Diagnosed Date Resolved Date Weight loss 11/14/2022 11/14/2022 History of renal calculi 04/12/2022 Overview (11/14/2022): Hx of kidney stones, treated at [facility] [place]. Assessment & Plan (11/14/2022 9:27 AM EDT): Hx of kidney stones, treated at [facility] [place]. Encounters Date Type Department Care Team Description 12/15/2024 Results Follow-Up [facility] [address] [place] [address] Lindsay Nguyen CNP XR Chest 2 Views 12/14/2024 5:20 PM EDT Office Visit [facility] [address] [place] [address] Lindsay Nguyen CNP Mild intermittent asthma with exacerbation (Primary Dx); Bilateral posterior neck pain; Chest pain, unspecified type 12/14/2024 Travel 11/17/2024 Results Follow-Up [facility] [address] [place] [id number] Shae Layne MD Hepatic Function Panel, Lipid Panel, Standard, Basic Metabolic Panel, Additional followed-up results: 5 10/27/2024 2:15 PM EDT Office Visit [facility] [address] [place] [address] Shae Layne MD Mild intermittent asthma without complication (Primary Dx); Iron deficiency; Dyslipidemia; Screening cholesterol level; Screening mammogram for breast cancer; Kidney stone; Pain in both knees, unspecified chronicity; Positive depression screening; Severe obesity (CMS/HCC); Dietary counseling; Exercise counseling; Encounter for immunization; Other specified health status 10/27/2024 Travel 10/26/2024 Telephone [facility] [address] [place] [address] Shae Layne MD CHART PREP 10/20/2024 Patient Outreach [facility] [address] [place] [address] Shae Layne MD Pre-visit Planning ( LVM ) from Last 3 Months Immunizations Immunization Administration Dates Next Due Hep B, adult 10/27/2024,11/14/2022 Influenza injectable quadrivalent preservative f ree 02/20/2015 Influenza, IIV3, injectable 04/13/2010, 9 Influenza, Split (incl. purified surface antigen ) 12/10/2012 Pfizer Covid-19 Vaccine 12+ ana maría-sucrose (Jimenez C ap) 06/27/2021,06/02/2021 Pneumococcal Conjugate PCV 20 10/27/2024 Pneumococcal Polysaccharide PPSV23 10/18/2017 Tdap 02/20/2015 Family History Medical History Relation Name Comments Diabetes Father Heart disease Father Stroke Father Kidney disease Mother heart disease Mother Heart disease Sister Hypertension Sister Relation Name Status Comments Father Mother Sister Social History Tobacco Use Types Packs/Day Years Used Date Smoking Tobacco: Never Smokeless Tobacco: Never Tobacco Cessation:Counseling Given: Not Answered Depression Answer Date Recorded Patient Health Questionnaire-9 [...] Q2 Not on file 11/02/2024 Comments Unknown Intention Date Recorded No desire to become (finding) 0 10/27/2024 Sex and Gender Information Value Date Recorded Sex Assigned at Female 02/04/2022 10:20 AM EDT Legal Sex Female 10:20 AM EDT Gender Identity Female 02/04/2022 10:20 AM EDT Sexual Orientation Straight 02/04/2022 10 :20 AM EDT Last Filed Vital Signs Vital Sign Reading [...] Mass Index 38.47 12/14/2024 5:20 PM EDT Plan of Treatment Health Maintenance Due Date Last Done Comments CT Colonography 1973 FIT DNA/Cologuard 1975 FIT 1975 FOBT 1975 Sigmoidoscopy 1975 Zoster Vaccines (1 of 2) 2023 COVID-19 Vaccine (3 - season) 2024 06/27/2021, 06/02/2021 Influenza Vaccine (#1) 2024 5, 12/10/2012, 04/13/2010, Additional history exists Hepatitis B Vaccines (3 of 3 - 19+ 3-dose series) 12/22/2024 10/27/2024, 11/14/2022 Mammogram 12/25/2024 12/25/2022 DTaP/Tdap/Td Vaccines (2 - Td or Tdap) 02/20/2025 02/20/2015 Alcohol/Substance Use Screening 10/27/2025 10/27/2024 Depression Screening 10/27/2025 10/27/2024, 10/28/19 25 Disability Screening 10/27/2025 10/27/2024 Family Planning (PISQ) 10/27/2025 10/27/2024 SDOH Screening 10/27/2025 10/27/2024 Tobacco Screening 10/27/2025 10/27/2024 Cervical Cancer Screening 11/29/2026 HPV/Cotest 11/29/2026 11/29/2021, 08/2 08/2021, 11/29/2021 Pap Smear 11/29/2026 11/29/2021 Lipid Panel 11/17/2029 11/17/2024, 06/0 09/2022, 08/17/2021, Additional history exists Colonoscopy 05/29/2033 05/29/2023 Colorectal Cancer Screening 05/29/2033 RSV Patients and Patients Aged 60 years or older (1 - 1-dose 75+ series) 2048 HIV Screening Completed 09/10/2022, 10/26/2019 Hepatitis C Screening Completed 09/10/2022, 020 Pneumococcal Vaccine: 50+ Years Completed 10/27/2024, 10/18/2017 HIB Vaccines Aged Out No longer eligi ble based on patient's age to complete this topic HPV Vaccines Aged Out No longer eligi ble based on patient's age to complete this topic Hepatitis A Vaccines Aged Out No long er eligible based on patient's age to complete this topic IPV Vaccines Aged Out No longer eligi ble based on patient's age to complete this topic Meningococcal B Vaccine Aged Out No l onger eligible based on patient's age to complete this topic Meningococcal Vaccine Aged Out No stanislav laina eligible based on patient's age to complete this topic RSV under 20 months Aged Out No longe r eligible based on patient's age to complete this topic Rotavirus Vaccines Aged Out No longer eligible based on patient's age to complete this topic Procedures Procedure Name Priority Date/Time Associated Diagnosis Comments XR CHEST 2 VIEWS Routine 12/15/2024 9:27 AM EDT Chest pain, unspecified type ECG 12-LEAD Routine 12/14/2024 5:42 PM EDT Chest pain, unspecified type VITAMIN B12/FOLATE, SERUM PANEL Routine 11/17/2024 9:02 AM EDT Iron deficiency IRON AND TOTAL IRON BINDING CAPACITY Routine 11/17/2024 9:02 AM EDT Iron deficiency TSH W/REFLEX TO FT4 Routine 11/17/2024 9 :02 AM EDT Iron deficiency FERRITIN Routine 11/17/2024 9:02 AM EDT Iron deficiency CBC WITH AUTO DIFFERENTIAL Routine 11/17/2024 9:02 AM EDT Iron deficiency BASIC METABOLIC PANEL Routine 11/17/2024 9:02 AM EDT Kidney stone LIPID PANEL, STANDARD Routine 11/17/2024 9:02 AM EDT Screening cholesterol level HEPATIC FUNCTION PANEL Routine 9:02 AM EDT Screening cholesterol level HM COLONOSCOPY Routine 05/29/2023 BI MAMMOGRAM SCREENING TOMOSYNTHESIS BILATERAL Routine 12/25/2022 4:10 PM EDT HEPATITIS C AB W/REFL TO HCV RNA, QN, PCR Routine 09/10/2022 8:45 AM EDT Routine screening for STI (sexually transmitted infection) HIV 1/2 ANTIGEN/ANTIBODY, FOURTH GENERATION W/RFL Routine 09/10/2022 8:45 AM EDT Routine screening for STI (sexually transmitted infection) HPV HIGH RISK PCR Routine 11/29/2021 12: 00 AM EDT PAP SMEAR Routine 11/29/2021 12:00 AM EDT from Last 3 Months or Most Recently Relevant to Health Maintenance Results * XR Chest 2 Views (12/15/2024 9:27 AM EDT) Anatomical Region Laterality Modality Chest Radiographic Carito ging 12/15/2024 9:27 AM EDT Narrative 12/15/2024 9:55 AM EDT [address] [address] XRay Report Signed Patient: Anahi Rodriguez MR#: [id number] : 1975 Acct:[id number] Age/Sex: 49 / F ADM Date: 12/15/24 Loc: HO.HHCX Attending Dr: Lindsay Nguyen SHOPPING INVESTIGATOR Ordering Physician: Lindsay Nguyen NP Date of Service: 12/15/24 Procedure(s): XR chest 2V Accession Number(s): [id number] cc: Shae Layne MD; Lindsay Nguyen NP [...] Chun Jain MD 12/15/2024 09:52 AM EDT Dictated By: Chun Vasquez MD Signed By: <Electronically signed by Chun Junior MD in [place]> 12/15/24951 DD/ 6 TD/TT: 12/15/24926 Box Stamper: Procedure Note Donotuseinterpreter, Image - 12/15/[address] [address] XRay Report Signed Patient: Anahi RodriguezMR#: [id number] : 1975Acct:[id number] Age/Sex: 49 / FADM Date: 12/15/24 Loc: HO.HHCX Attending Dr: Lindsay Nguyen SHOPPING INVESTIGATOR Ordering Physician: Lindsay Nguyen NP Date of Service: 12/15/24 Procedure(s): XR chest 2V Accession Number(s): [id number] cc: Shae Layne MD; Lindsay Nguyen NP [...] MDin OV> 12/15/24951 DD/ 6 TD/TT: 12/15/24926 Box Stamper: Lindsay Nguyen [facility] IMG XR PROCEDURES Final R esult * ECG 12 lead (12/14/2024 5:42 PM EDT) Narrative Lindsay Nguyen CNP - 12/14/2024 5:42 PM EDT HR 73, NSR, No ST segmental changes, no QR interval changes, normal ECG Lindsay Nguyen [facility] ECG ORDERABLES Final Res ult * Vitamin B12 (Cobalamin) and Folate Panel, Serum (11/17/2024 9:02 AM EDT) Vitamin B12 640 200 - 900 pg/mL [facility] Comment:NORMAL 200-900 PG/ML INDETERMINATE 160-199 PG/ML DEFICIENT < 160 PG/ML Folate 7.3 > or = 4.0 ng/mL [facility] Comment:Reference Values:> o r = 4.0 ng/mL< 4.0 ng/mL suggests folate deficiency Methotrexate, aminopterin and folinic acid(leucovorin) are chemotherapeutic agents whose molecularstructures are similar to folate; therefore, the Architectfolate assay cannot be used for patients using these drugs. Blood Venous blood specimen / Unknown 11/17/2024 9:02 AM EDT 11/17/2024 11:19 AM EDT Shae Layne MD LAB BLOOD ORDERABLES Final Result Performing Organization Address [facility] Co de Phone Number [facility] [address] [place] [phone] * TSH with Reflex to Free T4 (11/17/2024 9:02 AM EDT) [facility] TSH reflex Free T4 2.47 0.32 - 4.0 uIU/mL [facility] Blood Venous blood specimen / Unknown 11/17/2024 9:02 AM EDT 11/17/2024 11:19 AM EDT Shae Layne MD LAB BLOOD ORDERABLES Final Result Performing Organization Address [facility] de Phone Number [facility] [address] [place] [phone] * (ABNORMAL) CBC auto differential (11/17/2024 9:02 AM EDT) [facility] White Blood Count 6.7 4.8 - 10.8 X10*3/uL [facility] Red Blood Count 4.14(L) 4.20 - 5.50 X10*6/uL [facility] Hemoglobin 12.6 12.0 - 16.0 g/dl [facility] Hematocrit 38.7 37.0 - 47.0 % [facility] Mean Corpuscular Volume 93.5 80.0 - 98.0 fL [facility] Mean Corpuscular Hemoglobin 30.4 27.0 - 33.0 pg [facility] Mean Corpuscular HGB Conc 32.6 31.0 - 35.0 g/dl [facility] Red Cell Distribution Width 13.5 11.0 - 16.0 % [facility] Platelet Count 277 160 - 400 X10*3/uL [facility] Mean Platelet Volume 10.6 9.4 - 12.3 fL [facility] Neutrophils Percent Auto 50.8 45 - 73 % [facility] Imm Gran Pct Auto 0.6(H) 0.0 - 0.4 % [facility] Lymphocytes Percent Auto 41.3(H) 20 - 40 % [facility] Monocytes Percent Auto 4.7 2 - 11 % [facility] Eosinophils Percent Auto 2.0 0 - 4 % [facility] Basophils Percent Auto 0.6 0 - 2 % [facility] NRBC Pct Auto 0.0 0.0 - 0.2 /100WBC [facility] Neutrophils Absolute Auto 3.4 2.0 - 8.3 x10*3/uL [facility] Imm Gran Abs Auto 0.04(H) 0.00 - 0.03 X10*3/uL [facility] Lymphocytes Absolute Auto 2.8 1.2 - 4.9 X10*3/uL [facility] Monocytes Absolute Auto 0.3 0.1 - 1.2 X10*3/uL [facility] Eosinophils Absolute Auto 0.1 0.0 - 0.4 X10*3/uL [facility] Basophils Absolute Auto 0.0 0.0 - 0.2 X10*3/uL [facility] NRBC Abs Auto 0.000 0.0 - 0.012 X10*3/uL [facility] Blood Venous blood specimen / Unknown 11/17/2024 9:02 AM EDT 11/17/2024 11:19 AM EDT us Shae Layne MD LAB BLOOD ORDERABLES Final Result [facility] [address] [place] [phone] * Iron And Total Iron Binding Capacity (11/17/2024 9:02 AM EDT) Iron 76 30 - 160 mcg/dL [facility] Total Iron Binding Capacity 324 228 - 428 mcg/dL [facility] Percent Iron Saturation 23 15 - 50 % [facility] Unsaturated Iron Binding 248 ug/dL [facility] Blood Venous blood specimen / Unknown 11/17/2024 9:02 AM EDT 11/17/2024 11:19 AM EDT Shae Layne MD LAB BLOOD ORDERABLES Final Result Performing Organization Address [facility]/ZIP Co de Phone Number [facility] [address] [place] [phone] * Ferritin (11/17/2024 9:02 AM EDT) Pathologist [facility] Ferritin 21 10 - 250 ng/mL [facility] Blood Venous blood specimen / Unknown 11/17/2024 9:02 AM EDT 11/17/2024 11:19 AM EDT Shae Layne MD LAB BLOOD ORDERABLES Final Result Performing Organization Address City/[facility]/ZIP Co de Phone Number [facility] [address] [place] [phone] * (ABNORMAL) Hepatic Function Panel (11/17/2024 9:02 AM EDT) Bilirubin, Total 0.3 0.0 - 1.0 mg/dL [facility] Bilirubin, Direct 0.1 0.0 - 0.5 mg/dL [facility] Aspartate Amino Transferase 32(H) 5 - 31 U/L [facility] Alanine Aminotransferase 27 0 - 31 U/L [facility] Total Protein 6.6 6.5 - 8.0 g/dL [facility] Albumin Level 3.8 3.5 - 5.0 g/dL [facility] Alkaline Phosphatase 84 39 - 117 U/L [facility] Blood Venous blood specimen / Unknown 11/17/2024 9:02 AM EDT 11/17/2024 11:19 AM EDT Shae Layne MD LAB BLOOD ORDERABLES Final Result Performing Organization Address [facility]/ZIP Co de Phone Number [facility] [address] [place] [phone] * (ABNORMAL) Lipid Panel, Standard (11/17/2024 9:02 AM EDT) Triglycerides 197(H) <150 mg/dL [facility] Comment:Desirable Triglyceri de: less than 150 mg/dLBorderline High Triglyceride 150-199 mg/dLHigh Triglyceride: 200-499 mg/dLVery High Triglyceride: greater than or equal to 5OO mg/dL Cholesterol 269(H) <200 mg/dL [facility] Comment:Desirable Cholestero l: less than 200 mg/dLBorderline High Cholesterol: 200-239 mg/dLHigh Cholesterol: greater than 239 mg/dL LDL Cholesterol Calculated 176(H) <100 mg/dL [facility] Comment:Desirable LDL: less than 100 mg/dLNear Optimal/Above Optimal LDL: 110- 129 mg/dLBorderline High LDL: 130-159 mg/dLHigh LDL: 160-189 mg/dLVery High LDL: greater than or equal to 190 mg/dL HDL Cholesterol 54 >40 mg/dL [facility] Comment:Desirable HDL: great er than 40 mg/dL Note: This HDL assay may give artificially low results in patients with liver disease. Blood Venous blood specimen / Unknown 11/17/2024 9:02 AM EDT 11/17/2024 11:19 AM EDT Shae Layne MD LAB BLOOD ORDERABLES Final Result Performing Organization Address [facility]/ZIP Co de Phone Number [facility] [address] [place] [phone] * (ABNORMAL) Basic Metabolic Panel (11/17/2024 9:02 AM EDT) Sodium 140 135 - 145 mmol/L [facility] Potassium 4.6 3.3 - 5.1 mmol/L [facility] Chloride 107 96 - 108 mmol/L [facility] Carbon Dioxide 28 22 - 29 mmol/L [facility] Anion Gap 10(L) 12 - 20 [facility] Urea Nitrogen (BUN) 17(H) 9 - 16 mg/dL [facility] Creatinine, Serum 0.67 0.5 - 1.4 mg/dL [facility] Estimated Glomerular Filt Rate >60 [facility] Comment:Chronic Kidney Disea se: Estimated GFR < 60 mL/min/1.39p7Cenjgk Kidney Disease: Estimated GFR < 15 mL/min/1.73m2 Glucose 96 60 - 115 mg/dL [facility] Calcium 8.7 8.4 - 10.2 mg/dL [facility] Blood Venous blood specimen / Unknown 11/17/2024 9:02 AM EDT 11/17/2024 11:19 AM EDT Shae Layne MD LAB BLOOD ORDERABLES Final Result [facility] [address] [place] [address] [phone] * Hm Colonoscopy (05/29/2023) Colonoscopy Normal Normal, Abnormal, BIRADS 0 , BIRADS 1 , BIRADS 2, BIRADS 3 , BIRADS 4+ Jacqueline Jane MD HEALTH MAINTENANCE Final Result * BI Mammogram Screening Tomosynthesis Bilateral (12/25/2022 4:10 PM EDT) Anatomical Region Laterality Modality Breast Bilateral Mammography 12/25/2022 4:10 PM EDT Narrative 01/07/2023 1:37 PM EDT [facility] [address] [place] [address] Mammography Report Signed Patient: Anahi Rodriguez MR#: [id number] : 1975 Acct:[id number] Age/Sex: 47 / F ADM Date: 12/25/22 Loc: [facility] Attending Dr: Shae Layne MD Ordering Physician: Shae Layne MD Results: 1N egative Date of Service: 12/25/22 Follow Up: 1 Year From Orig inal Mammogram Procedure(s): MM tomosynthesis screening BI Accession Number(s): [id number] cc: Shae Layne MD EXAMINATION: MM SCREENING DIGITAL BREAST TOMOSYNTHESIS, BILATERAL CLINICAL INFORMATION: Screening. Asymptomatic. COMPARISON: Mammography: This study is compared with prior exams dating back to 2016. TECHNIQUE: Digital breast tomosynthesis is performed in both the craniocaudal and mediolateral oblique views along with computer-aided detection (CAD). Synthesized 2D images are generated from the tomosynthesis. FINDINGS: There are scattered areas of fibroglandular density (ACR BI-RADS breast composition Category b). There are no significant masses, abnormal calcifications, or other abnormalities. MM/MM tomosynthesis screening BI IMPRESSION: No mammographic evidence of malignancy. ASSESSMENT: BI-RADS BI-RADS 1 - Negative RECOMMENDATION: Routine annual mammography screening. 1 year F/U This examination should not preclude the clinical evaluation of a suspicious palpable abnormality. This patient's information was entered into a reminder system with a target due date for their next mammogram. Dictated By: Yoly Muhammad MD Signed By: <Electronically signed by Yoly Muhammad MD in OV> 01/07/23 1333 DD/ 1610 TD/TT: Box Stamper: Procedure Note Donotuseinterpreter, Image - 01/07/2023 [facility] [address] [place] [address] Mammography Report Signed Patient: Anahi RodriguezMR#: [id number] : 1975Acct:[id number] Age/Sex: 47 / FADM Date: 12/25/22 Loc: [facility] Attending Dr: Shae Layne MD Ordering Physician: Shae Layne MDResults: 1N egative Date of Service: 12/25/22Follow Up: 1 Year From Orig inal Mammogram Procedure(s): MM tomosynthesis screening BI Accession Number(s): [id number] cc: Shae Layne MD EXAMINATION: MM SCREENING DIGITAL BREAST TOMOSYNTHESIS, BILATERAL CLINICAL INFORMATION: Screening. Asymptomatic. COMPARISON: Mammography: This study is compared with prior exams dating back to 2016. TECHNIQUE: Digital breast tomosynthesis is performed in both the craniocaudal and mediolateral oblique views along with computer-aided detection (CAD). Synthesized 2D images are generated from the tomosynthesis. FINDINGS: There are scattered areas of fibroglandular density (ACR BI-RADS breast composition Category b). There are no significant masses, abnormal calcifications, or other abnormalities. MM/MM tomosynthesis screening BI IMPRESSION: No mammographic evidence of malignancy. ASSESSMENT: BI-RADS BI-RADS 1 - Negative RECOMMENDATION: Routine annual mammography screening. 1 year F/U This examination should not preclude the clinical evaluation of a suspicious palpable abnormality. This patient's information was entered into a reminder system with a target due date for their next mammogram. Dictated By: Yoly Muhammad MD Signed By: <Electronically signed by Yoly Muhammad MD in OV> 01/07/23 1333 DD/ 1610 TD/TT: Box Stamper: us Shae Layne MD IMG BI PROCEDURES Final Re sult * Hepatitis C Antibody with Reflex to HCV, RNA, Quantitative, Real-Time PCR (09/10/2022 8:45 AM EDT) Hepatitis C Antibody NON-REACT CELSA NON-REACT CELSA [facility] Index 0.04 <1.00 [facility] Comment: HCV antibody was non-reactive. There is no laboratory evidence of HCV infection. In most cases, no further action is required. However, if recent HCV exposure is suspected, a test for HCV RNA (test code 76572) is suggested. For additional information please refer to http://education.[employer]/faq/LHZ40y8 (This link is being provided for informational/ educational purposes only.) Blood Venous blood specimen / Unknown 09/10/2022 8:45 AM EDT 09/10/2022 8:46 AM EDT Narrative [facility] - 09/13/2022 3:04 PM EDT FASTING:YES FASTING: YES Shae Layne MD LAB BLOOD ORDERABLES Final Result Performing Organization Address City/[facility]/ZIP Co de Phone Number [address], [place] [phone] [facility] [address] [place] [phone] * HIV-1/2 Antigen and Antibodies, Fourth Generation, with Reflexes (09/10/2022 8:45 AM EDT) [facility] HIV Antigen/Antibody, 4th Generation NON-REAC TIVE NON-REAC TIVE [facility] Comment: HIV-1 antigen and HIV-1/HIV-2 antibodies were not detected. There is no laboratory evidence of HIV infection. PLEASE NOTE: This information has been disclosed to you from records whose confidentiality may be protected by state law. If your state requires such protection, then the state law prohibits you from making any further disclosure of the information without the specific written consent of the person to whom it pertains, or as otherwise permitted by law. A general authorization for the release of medical or other information is NOT sufficient for this purpose. For additional information please refer to http://education.[employer]/faq/GVM884 (This link is being provided for informational/ educational purposes only.) The performance of this assay has not been clinically validated in patients less than 2 years old. Blood Venous blood specimen / Unknown 09/10/2022 8:45 AM EDT 09/10/2022 8:46 AM EDT Narrative [facility] - 09/13/2022 3:04 PM EDT FASTING:YES FASTING: YES Shae Layne MD LAB BLOOD ORDERABLES Final Result [address], [place] [address] [facility] [address] [place] [address] * HPV High Risk PCR (11/29/2021 12:00 AM EDT) Swab Cervical swab / Unknown Juan Dobson MD LAB MICROBIOLOGY - GENERAL ORDER ADAM Final Result [facility] [address] [place] [phone] * Pap Smear (11/29/2021 12:00 AM EDT) Swab Juan Dobson MD LAB CYTOLOGY ORDERABLES Final Re sult Performing Organization Address City/[facility]/ZIP Co de Phone Number [facility] [address] [place] [phone] from Last 3 Months or Most Recently Relevant to Health Maintenance [facility] Advance Directives Documents on File Type Date Recorded Patient Engineering Production Liaison Expl anation Advance Directives and Living Will 10/29/2023 Health Care Proxy 10/29/23 Care Teams Web Consultant Relationship Specialty Start Date End Date [place], [place] Shae [address] [place] [phone] PCP - General Family Medicine 04/07/18
--- OUTSIDE RECORDS SUMMARY | 2024-12-15 10:53 | XMS_ITS | Encounter Summary ---
Author Organization [employer] Address [address] [facility] 7t [place] [address] Care Team Providers Care Credit Correspondence Clerk Name Role Phone Shae Layne MD Primary Care Provider [phone]- [phone] Encounter Details Date Type Department Care Team (Late st Contact Info) Description 01/06/2023 Abstract [facility] [address] [place], [place] [phone] Shae Layne MD [address] [place], [place] [phone] Social History Tobacco Use Types Packs/Day Years [...] documented as of this encounter Care Teams Credit Correspondence Clerk Relationship Specialty Start Date End Date Shae Layne MD [address] [place], [place] [phone] PCP - General Family Medicine 04/07/18 documented as of this encounter
--- OUTSIDE RECORDS SUMMARY | 2024-12-15 10:53 | XMS_ITS | Encounter Summary ---
Author Organization [employer] Address [address] [facility] 7[address] [place] [address] Care Team Providers Care Psychological Examiner Name Role Phone Shae Layne MD Primary Care Provider [phone]- [phone] Encounter Details Date Type Department Care Team (Late st Contact Info) Description 08/05/2022 Abstract [facility] [address] [place], [place] [phone] Shae Layne MD [address] [place], [place] [phone] Social History Tobacco Use Types Packs/Day Years Used Date Smoking Tobacco: Never Assessed Depression Answer Date Recorded Patient Health Questionnaire-9 Score 0 08/08/2022 Depression Answer Date Recorded Patient Health Questionnaire-2 Score 0 08/08/2022 Comments Unknown Sex and Gender Information Value Date Recorded Sex Assigned at Female 02/04/2022 10:20 AM EDT Legal Sex Female 10:20 AM EDT Gender Identity Female 02/04/2022 10:20 AM EDT Sexual Orientation Straight 02/04/2022 10 :20 AM EDT COVID-19 Exposure Response Date Recorded In the last 10 days, have yo u been in contact with someone who was confirmed or suspected to have Coronavirus/COVID-19? No / Unsure 08/08/2022 3:50 PM EDT documented as of this encounter Functional Status * Over the past 2 weeks, how often have you been bothered by any of the following problems? Question Answer Date of Assessment Author Patient Health Questionnaire-2 Score 0 05/0 07/2022 3:57 PM EDT Noemí Cowan [place] * Over the past 2 weeks, how often have you been bothered by any of the following problems? Question Answer Date of Assessment Author Little interest or pleasure in doing things Not at all 08/08/2022 3:57 PM Noemí Mcmillan [place] Feeling down, depressed, or hopeless Not at all 08/08/2022 3:57 PM Noemí Mcmillan [place] Trouble falling or staying asleep, or sleeping too much Not at all 08/08/2022 3:57 PM JAZMINET Reynaldo Cowan [place] Feeling tired or having doreen le energy Not at all 08/08/2022 3:57 PM EDT Noemí Cowan [place] Poor appetite or overeating Not at all 08/08/2022 3: 57 PM JAZMINET Noemí Cowan [place] Feeling bad about yourself - or that you are a failure or have let yourself or your family down Not at all 08/08/2022 3:57 PM JAZMINET Noemí Tripathi [place] Trouble concentrating on thi ngs, such as reading the newspaper or watching television Not at all 08/08/2022 3:57 PM JAZMINET Noemí Cowan MA Moving or speaking so slowly that other people could have noticed? Or the opposite - being so fidgety or restless that you have been moving around a lot more than usual. Not at all 08/08/2022 3:57 PM JAZMINET Noemí Cowan MA Thoughts that you would be b lukas off or hurting yourself in some way Not at all 08/08/2022 3:57 PM Noemí Mcmillan [place] Patient Health Questionnaire -9 Score 0 08/08/2022 3:57 PM JAZMINET Noemí Cowan MA documented as of this encounter Plan of Treatment Not on file documented as of this encounter Visit Diagnoses Not on filedocumented in this encounter Care Teams Psychological Examiner Relationship Specialty Start Date End Date Shae Layne MD [address] [place] [phone] PCP - General Family Medicine 04/07/18 documented as of this encounter
--- OUTSIDE RECORDS SUMMARY | 2024-12-15 10:53 | XMS_ITS | Encounter Summary ---
Author Organization [employer] Address [address] [facility] [address] [place] [address] Care Team Providers Care Wood Shop Teacher Name Role Phone Shae Layne MD Primary Care Provider +1- [phone] Reason for Visit * Reason Onset Date Comments Referral 06/25/2022 Encounter Details Date Type Department Care Team ([facility] st Contact Info) Description 06/25/2022 Telephone [facility] [address] [place], [place] [phone] Shae Layne MD [address] [place], [place] [phone] Referral Social History Tobacco Use Types Packs/Day Years Used Date Smoking Tobacco: Never Assessed Comments Unknown Sex and Gender Information Value Date Recorded Sex Assigned at Female 02/04/2022 10:20 AM EDT Legal Sex Female 10:20 AM EDT Gender Identity Female 02/04/2022 10:20 AM EDT Sexual Orientation Straight 02/04/2022 10 :20 AM EDT documented as of this encounter Miscellaneous Notes * Telephone Encounter - Nanette Barakat RN - 06/25/2022 1:00 PM EDT Pt has upcoming appt with JENN Downs to discuss worsening pain and vasc referral * Telephone Encounter - Yvan Burns - 06/25/2022 12:13 PM EDT Tc from pt requesting a referral for a Vacuolar regarding her operation on her legs in 2017. Please contact pt at [phone] documented in this encounter Plan of Treatment Not on file documented as of this encounter Visit Diagnoses Not on filedocumented in this encounter Care Teams Wood Shop Teacher Relationship Specialty Start Date End Date Shae Layne MD [address] [place] [address] PCP - General Family Medicine 04/07/18 documented as of this encounter
--- OUTSIDE RECORDS SUMMARY | 2024-12-15 10:53 | XMS_ITS | Encounter Summary ---
Author Organization [employer] Address [address] [facility] [address] [place] [address] Care Team Providers Care Preload Supervisor Name Role Phone Shae Layne MD Primary Care Provider +1- [phone] Encounter Details Date Type Department Care Team (Latest Contact Info) Description 12/14/2024 Travel Social History Tobacco Use Types Packs/Day Years [...] documented as of this encounter Care Teams Preload Supervisor Relationship Specialty Start Date End Date Shae Layne MD [address] [place] [address] PCP - General Family Medicine 04/07/18 documented as of this encounter
== END 2024-12-15 09:12 | disposition home or self-care (01) ==
LOC: HO.HHCX 09:11
PROVIDERS: PCP Family Medicine
DX: R07.9 Chest pain, unspecified (principal)
CPT/HCPCS: 71046

== ENCOUNTER → 2024-12-15 09:16 | Outpatient (BNV) | payer MEDICAID, SELFPAY | PROVIDERS: PCP Family Medicine; Visit Provider Radiology Diagnostic Radiology | DX: R07.9 Chest pain, unspecified (principal); J45.909 Unspecified asthma, uncomplicated | CPT/HCPCS: 71046 ==

== ENCOUNTER 2025-01-28 14:14 | Outpatient (REF) | payer MEDICAID, SELFPAY ==
--- NOTE | ~2025-01-28 | MM_ITS ---
EXAMINATION: MM SCREENING DIGITAL BREAST TOMOSYNTHESIS, BILATERAL CLINICAL INFORMATION: Screening. Asymptomatic. COMPARISON: Mammography: Comparison is made with available priors TECHNIQUE: Digital breast mammography with tomosynthesis is performed in both the craniocaudal and mediolateral oblique views along with computer-aided detection (CAD). FINDINGS: There are scattered areas of fibroglandular density. Left: Asymmetry superior breast middle depth on MLO view. No suspicious calcifications or other abnormal findings. Right: Asymmetry superior breast middle depth on MLO view. No suspicious calcifications or other abnormal findings. MM/MM tomosynthesis screening BI IMPRESSION: Additional imaging is recommended ASSESSMENT: BI-RADS Category 0: Incomplete - Need additional Imaging Evaluation RECOMMENDATION: 1. Additional views of the bilateral breasts. 2. Targeted ultrasound if warranted after review of the additional views. 3. Radiology department staff will contact the patient for additional imaging. Additional Imaging required Electronically signed by: Justine Lentz DO 02/01/2025 09:58 AM EDT
== END 2025-01-28 14:15 | disposition home or self-care (01) ==
LOC: HO.MAMMO 14:14
PROVIDERS: PCP Family Medicine; Visit Provider Family Medicine
DX: Z12.31 Encounter for screening mammogram for malignant neoplasm of breast (principal)
CPT/HCPCS: 77063; 77067

== ENCOUNTER → 2025-01-28 14:30 | Outpatient (BNV) | payer MEDICAID, SELFPAY | PROVIDERS: PCP Family Medicine; Visit Provider Internal Medicine | DX: Z12.31 Encounter for screening mammogram for malignant neoplasm of breast (principal) | CPT/HCPCS: 77063; 77067 ==